=== PATIENT | female | born 1950 | race African-American/Black ===

== ENCOUNTER 2017-04-18 09:17 | Emergency (ER) | payer OTHER ==
[~2017-04-18] VITALS: Ht 165.1 cm; Wt 98.9 kg
[~2017-04-18 09:17] MED LIST: DILTIAZEM ER180 M1 PO; GLUCOPHAGE1000 MG PO; MOBIC15 MG PO; NORCO 5-325 TA1 EACH PO; PRILOSEC 20 MG20 MG PO; SIMVASTATIN40 MG PO; TESSALON PERLE100 MG PO; VENTOLIN HFA 1818 GM INH; XANAX 0.5 MG0.5 M1 PO; ZOLOFT 50 MG TA50 M1 PO; ZPAK PO
[2017-04-18 09:19] VITALS: BP 158/87
[2017-04-18] MEDS ORDERED: GLUCOTROL5 MG PO (09:36)
[2017-04-18] MEDS ORDERED: BENICAR40 MG PO (09:37)
[2017-04-18] MEDS ORDERED: NORFLEX100 MG PO (10:12)
== END 2017-04-18 10:17 | disposition home or self-care (01) ==
LOC: ER 09:17
DX: S16.1XXA Strain of muscle, fascia and tendon at neck level, initial encounter (principal); R07.89 Other chest pain; I10 Essential (primary) hypertension; E11.9 Type 2 diabetes mellitus without complications; F10.99 Alcohol use, unspecified with unspecified alcohol-induced disorder; Z90.710 Acquired absence of both cervix and uterus; Z88.5 Allergy status to narcotic agent; V89.2XXA Person injured in unspecified motor-vehicle accident, traffic, initial encounter; Y93.I9 Activity, other involving external motion; Y92.89 Other specified places as the place of occurrence of the external cause; Y99.8 Other external cause status

== ENCOUNTER 2017-12-23 13:43 | Inpatient (IN) | payer OTHER ==
[~2017-12-23] VITALS: Ht 165.1 cm; Wt 47.6 kg
--- NOTE | ~2017-12-23 | CATHLAB ---
[address] [place] [address] [place] [address] INVASIVE PROCEDURE REPORT Name: DALTON RYAN Room #: 422-P [facility] IN ..#: [id number] Admission: 12/23/17 Attend Phys: Facundo Bartlett, Discharge: Date of : 46 Date of Service: 12/25/17 1455 Report #: [id number] THIS REPORT FOR: //name// APPROVED REPORT Study performed: 12/25/2017 13:02:48 Patient Details Patient Status: In-Patient Room #: The patient is a 67 year-old female Event Personnel Nahid Gaston Operations Support Professionals, Jose Joe RN, Tom Gaytan, Louisa Barr Scrub Procedures Performed Left Heart Cath w/or w/o Coronaries [id number] [facility] Indication Chest pain Risk Factors Hypercholesterolemia, Hypertension, Diabetes Procedure Narrative The Right Groin^ was infiltrated with 1% Lidocaine subcutaneous anesthesia. A PINNACLE 4FR Sheath #[id number] sheath was inserted into the RFA^. Coronary angiography was performed using coronary diagnostic catheters. The right coronary system was accessed and visualized with a JR4 catheter. The left coronary system was accessed and visualized with a JL4 catheter. The left ventricle was accessed and visualized with a PIGTAIL catheter. Left ventricular/Aortic Valve gradient assessed via catheter pullback. Left ventriculogram was performed in 30 degree projection. Hemostasis was obtained with manual pressure following sheath removal without any complications. The patient tolerated the procedure well and there were no complications associated with the procedure. There was no hematoma. Intraoperative Conscious Sedation Sedation start time: 13.22 Case end Time: 13.32 Versed 2 mg Fluoro Time: 1.40 minutes [facility] [place] [place] [address] INVASIVE PROCEDURE REPORT Name: DALTON RYAN Room #: 422-P [facility]#: [id number] Admission: 12/23/17 Attend Phys: Facundo Bartlett, Discharge: Date of : 46 Date of Service: 12/25/17 1455 Report #: [id number] Dose: 552 mGy Contrast Type and Amount: Omnipaque 100 ml Coronary Angiography The patient's coronary anatomy is right dominant. Diagnostic Cath Left Main Patent vessel, with no flow-limiting lesions. LAD Moderate size caliber vessel, with mild disease in the mid segment, 20%. Diagonal 1 Patent vessel, no flow-limiting lesions. Circumflex Patent vessel, supplies several obtuse marginal arteries. OM1 Patent vessel, with no flow-limiting lesions. OM2 Patent vessel with mild disease in the proximal segment, 20%. Right Coronary Dominant vessel with mild to moderate diffuse disease in the proximal and mid segments, 30-40%. R PDA Patent vessel, with no flow-limiting lesions. RPLV Patent vessel, with no flow-limiting lesions. Left Ventriculography The left ventricle is normal in size with normal contractility. The left ventricular ejection fraction is estimated to be 55-60%. Hemodynamics The aortic pressure is 165/89 mmHg with a mean of 80 mmHg. The left ventricular pressure is 150/24 mmHg with a mean of mmHg. The left ventricular end diastolic pressure is 33 mmHg. Conclusion 1. Mild to moderate CAD in the LAD and RCA. 2. Right dominant system. 3. Normal LV systolic function. 4. Recommend risk factor management. <ELECTRONICALLY SIGNED> By: Nahid Gaston MD 12/25/17 1455 1455 1455 Nahid Gaston MD /INF
--- NOTE | ~2017-12-23 | EKG ---
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 : 1950 Requested By: Matthew Larson Order Number: [id number] MD: Matthew Larson Measurements Intervals [place] Rate: 67 P: 65 VA: 150 QRS: 44 QRSD: 90 T: 30 QT: 450 QTc: 475 Interpretive Statements Sinus rhythm Minimal ST elevation, anterior leads Compared to ECG 12/23/2017 14:37:16 ST (T wave) deviation now present T-wave abnormality no longer present Electronically Signed On 12-24-2017 19:53:31 CDT by Matthew Larson [email or web address] <ELECTRONICALLY SIGNED> By: Matthew Larson MD 12/24/171952 2 2 Matthew Larson MD /EPI
--- NOTE | ~2017-12-23 | EKG ---
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 GRISSOM : 1950 Requested By: Piedad Pemberton Order Number: [id number] MD: Matthew Larson Measurements Intervals [place] Rate: 72 P: 71 PA: 152 QRS: 40 QRSD: 87 T: 27 QT: 431 QTc: 472 Interpretive Statements Sinus rhythm Borderline T wave abnormalities Compared to ECG 05/04/2015 12:32:58 T-wave abnormality now present Atrial premature complex(es) no longer present Electronically Signed On 12-24-2017 8:48:16 CDT by Matthew Larson [email or web address] <ELECTRONICALLY SIGNED> By: Matthew Larson MD 12/24/17 0848 1437 1437 Matthew Larson MD /EPI
--- NOTE | ~2017-12-23 | HC ---
[facility] [place] [address] CONSULTATION Name: DALTON RYAN Room #: 422-P [facility] IN ..#: [id number] Admission: 12/23/17 Attend Phys: Facundo Bartlett DO Discharge: 12/26/17 Date of : 46 Report #: [id number] THIS REPORT FOR: //name// CC: Facundo Rai DATE OF SERVICE: 12/24/2017 REASON FOR CONSULTATION: Unstable angina. HISTORY OF PRESENT ILLNESS: The patient is a 67-year-old female with history of diabetes, hypertension, hyperlipidemia, and carotid endarterectomy back in 12/2016 at [facility]. She reports she had a prior heart catheterization 20 years ago, but has not had any recent cardiac evaluations. She reports that she was exercising yesterday doing her water aerobics where she started developing substernal chest pain, radiation to the arms, associated with shortness of breath and some nausea and diaphoresis. She presented to the Emergency Room for further evaluation. She reports that prior to presenting, she did try to take some antacids and drink some baking soda and this did not help her pain. She was admitted for further evaluation. She is currently chest pain free. PAST MEDICAL HISTORY: As above. SOCIAL HISTORY: Does not smoke. FAMILY HISTORY: Noncontributory. ALLERGIES: CODEINE. MEDICATIONS: Include metformin, meloxicam, omeprazole, glipizide, olmesartan, rosuvastatin, bupropion as well as amlodipine. REVIEW OF SYSTEMS: A 12-point review of systems was performed and was negative other than what I mentioned above. PHYSICAL EXAMINATION: VITAL SIGNS: Temperature is 36.7, pulse 66, respiration 18, blood pressure 121/68, sats 93%. GENERAL: She is alert, oriented x 3, no acute distress. HEENT: Sclerae anicteric. Oropharynx is clear. NECK: Supple with no thyromegaly. She does have a prior carotid endarterectomy scar to the right side with no bruits bilaterally. HEART: Regular rate and rhythm with no murmurs, rubs, or gallops. She does not have elevated jugular venous pressure. LUNGS: Clear to auscultation bilaterally. [facility] [address] [place] [address] CONSULTATION Name: DALTON RYAN Room #: 422-P [facility] IN ..#: [id number] Admission: 12/23/17 Attend Phys: Facundo Bartlett DO Discharge: 12/26/17 Date of : 46 Report #: [id number] ABDOMEN: Soft, nontender, nondistended with no hepatosplenomegaly. EXTREMITIES: No clubbing, cyanosis, or edema. NEUROLOGIC: Cranial nerves 2-12 are intact. LABORATORY DATA: CBC is normal. Chemistry: Potassium 4.4, creatinine 0.8, glucose 129. Troponin is normal x 2. ProBNP is pending. LDL 110, HDL 39. Her chest x-ray I personally visualized and there is no acute process. Her 12-lead EKG just performed shows sinus rhythm with no ischemic changes and no evidence of prior infarction. ASSESSMENT: 1. Unstable angina. 2. Diabetes. 3. Hypertension. 4. Hyperlipidemia. 5. Peripheral vascular disease. In summary, the patient is a 67-year-old, presenting with symptoms concerning for unstable angina. There is no ischemia on her EKG and her troponin is normal. I have recommended that we proceed with diagnostic cardiac catheterization tomorrow. I have discussed the details of the procedure including the risks, which include but not limited to bleeding as well as stroke or IN. We discussed if there are any findings, she may need stent placement versus evaluation for CT surgery if she would have 3-vessel disease. We will continue to follow. We will perform an echocardiogram today. <ELECTRONICALLY SIGNED> By: Matthew Larson MD 12/28/17 1141 0914 1906 Matthew Larson MD /nt
--- NOTE | ~2017-12-23 | 2DMMODE ---
[facility] [address] [facility] [place] [address] 2 D/M-MODE ECHOCARDIOGRAM Name: DALTON RYAN Room #: 422-P [facility] IN .R.#: [id number] Admission: 12/23/17 Attend Phys: Facundo Bartlett, Discharge: Date of : 46 Date of Service: 12/24/17 1256 Report #: [id number] THIS REPORT FOR: //name// APPROVED REPORT Study performed: 12/24/2017 10:59:49 EXAM: Comprehensive 2D, Doppler, and color-flow Echocardiogram Patient Location: Bedside Room #: 422 Status: on-call BSA: 2.09 HR: 66 bpm BP: 121/68 mmHg Rhythm: NSR Other Information Study Quality: Adequate Risk Factors: Cardiac Risk Factors: HTN, DM Indications Chest Pain 2D Dimensions LVEF(%): 61.68 (>50%) IVSd: 10.72 (7-11mm) LVOT Diam: 19.00 (18-24mm) LVDd: 42.12 mm PWd: 11.29 (7-11mm) Ascending Ao: 28.73 (22-36mm) LVDs: 28.29 (25-40mm) Aortic Root: 25.32 mm LV Single Plane 4CH: 60.33 % LV Single Plane 2CH: 55.37 % Darden's LVEF: 57.85 % Biplane EF: 57.0 % Volumes Left Atrial Volume (Systole) Single Plane 4CH: 41.75 mL Single Plane 2CH: 29.74 mL LA ESV Index: 19.00 mL/m2 Aortic Valve AoV Peak Luis E.: 1.26 m/s AO Peak Gr.: 6.36 mmHg LVOT Max P.17 mmHg LVOT Max V: 1.02 m/s [facility] [place] [address] 2 D/M-MODE ECHOCARDIOGRAM Name: DALTON RYAN Room #: 422-P [facility] IN M.R.#: [id number] Admission: 12/23/17 Attend Phys: Facundo Bartlett, Discharge: Date of : 46 Date of Service: 12/24/17 1256 Report #: [id number] Vmax: 2.30 cm2 Mitral Valve E/A Ratio: 0.7 MV Decel. Time: 349.19 ms MV E Max Luis E.: 0.71 m/s MV A Luis E.: 0.99 m/s MV PHT: 101.26 ms IVRT: 115.34 ms TDI E/Lateral E': 10.14 E/Medial E': 8.88 Medial E' Luis E.: 0.08 m/s Lateral E' Luis E.: 0.07 m/s Pulmonary Valve PV Peak Luis E.: 0.97 m/s PV Peak Gr.: 3.79 mmHg Pulmonary Vein P Vein S: 0.53 m/s P Vein A: 0.21 m/s P Vein D: 0.45 m/s P Vein A Dur.: 129.2 msec P Vein S/D Ratio: 1.18 Tricuspid Valve RAP Estimate: 10.00 mmHg Left Ventricle The left ventricle is normal size. There is normal LV segmental wall motion. Borderline concentric left ventricular hypertrophy. Left ventricular systolic function is normal. The left ventricular ejection fraction is within the normal range. LVEF is 60%. Grade I - abnormal relaxation pattern. Right Ventricle The right ventricle is normal size. The right ventricular systolic function is normal. Atria The left atrium size is normal. The right atrium size is normal. Aortic Valve The aortic valve is normal in structure. No aortic regurgitation is present. There is no aortic valvular stenosis. Mitral Valve [address] [address] 2 D/M-MODE ECHOCARDIOGRAM Name: DALTON RYAN Room #: 422-P [facility] IN [facility]#: [id number] Admission: 12/23/17 Attend Phys: Facundo Bartlett, Discharge: Date of : 46 Date of Service: 12/24/17 1256 Report #: [id number] There is mitral annular calcification. Trace mitral regurgitation. No evidence of mitral valve stenosis. Tricuspid Valve The tricuspid valve is normal in structure. There is no tricuspid valve regurgitation noted. Pulmonic Valve The pulmonary valve is normal in structure. There is no pulmonic valvular regurgitation. Great Vessels The aortic root is normal in size. IVC is normal in size and collapses with >50% inspiration Pericardium There is no pericardial effusion. <Conclusion> The left ventricle is normal size. Borderline concentric left ventricular hypertrophy. Left ventricular systolic function is normal. The left ventricular ejection fraction is within the normal range. LVEF is 60%. Grade I - abnormal relaxation pattern. The right ventricle is normal size. The right ventricular systolic function is normal. The left atrium size is normal. The right atrium size is normal. The aortic valve is normal in structure. There is mitral annular calcification. The tricuspid valve is normal in structure. There is no tricuspid valve regurgitation noted. The aortic root is normal in size. There is no pericardial effusion. <ELECTRONICALLY SIGNED> By: Matthew Larson MD 12/24/17 1256 1256 1256 Matthew Larson MD /INF
[~2017-12-23 13:43] MED LIST changes: +BENICAR40 MG PO; +GLUCOTROL5 MG PO; +NORFLEX100 MG PO
[2017-12-23 14:07] VITALS: BP 159/73
[2017-12-23 14:59] LABS: ABSOLUTE NEUTROPHILS 3.2 thou/uL (1.4-8.2); EOSINOPHILS 1.9 % (0.0-3.0); HEMATOCRIT 37.6 % (37.0-47.0); HEMOGLOBIN 12.6 gm/dL (12.0-15.0); MCH 31.3 pg (26.0-34.0); MCHC 33.6 g/dL (28.0-37.0); MCV 93.1 fL (80.0-100.0); MONOCYTES 9.1 % (1.0-8.0); PLATELET COUNT 275 thou/uL (150-400); RBC 4.04 mil/uL (4.20-5.00); RDW 15.5 % (10.5-14.5); WBC 6.7 thou/uL (4.0-11.0)
[2017-12-23 15:06] LABS: ANION GAP 7 mmol/L (7-16); BUN 14 mg/dL (7-18); CALCIUM 9.3 mg/dL (8.5-10.1); CHLORIDE 106 mmol/L (98-107); CO2 29 mmol/L (21-32); CREATININE 0.9 mg/dL (0.6-1.0); GLUCOSE 112 mg/dL (74-106); POTASSIUM 3.7 mmol/L (3.5-5.1); SODIUM 142 mmol/L (136-145)
[2017-12-23 15:15] LABS: ALBUMIN 3.9 g/dL (3.4-5.0); LIPASE 129 U/L (73-393); SGOT 29 U/L (15-37); SGPT 38 U/L (30-65); TOTAL BILIRUBIN 0.2 mg/dL (<0.1-1.0); TOTAL PROTEIN 7.5 g/dL (6.4-8.2); TROPONIN-I < 0.04 ng/mL (<0.06)
[2017-12-23 17:07] VITALS: BP 159/73
[2017-12-23] MEDS ORDERED: CRESTOR20 MG PO (17:16)
[2017-12-23] MEDS ORDERED: NORVASC10 MG PO (17:18)
[2017-12-23] MEDS ORDERED: WELLBUTRIN SR150 MG PO (17:18)
[2017-12-23 18:30] VITALS: BP 140/73
[2017-12-23 19:12] VITALS: BP 164/82
[2017-12-24] VITALS: BP 141/78
[2017-12-24 04:03] VITALS: BP 137/62
[2017-12-24 06:41] LABS: CALCIUM 9.3 mg/dL (8.5-10.1); CREATININE 0.8 mg/dL (0.6-1.0); POTASSIUM 4.4 mmol/L (3.5-5.1)
[2017-12-24 06:46] LABS: CHOLESTEROL 162 mg/dL (<200); HDL CHOLESTEROL 39 mg/dL (>40); LDL CHOLESTEROL 110 mg/dL (<100); TC:HDL 4.2 Ratio (Not establshd); TRIGLYCERIDE 65 mg/dL (<150); VLDL 13 mg/dL (<40)
[2017-12-24 07:53] VITALS: BP 121/68
[2017-12-24 14:40] VITALS: BP 116/46
[2017-12-24 20:00] VITALS: BP 139/72
[2017-12-25] VITALS (7 sets, daily range): BP systolic 129–161; BP diastolic 61–82
[2017-12-25 00:08] LABS: GLYCOHEMOGLOBIN (HGB A1C) 6.8 % (4.8-5.6)
[2017-12-25 01:19] LABS: URINE BILIRUBIN NEGATIVE (Negative); URINE BLOOD NEGATIVE (Negative); URINE CLARITY CLEAR; URINE COLOR YELLOW; URINE GLUCOSE-RANDOM* NEGATIVE (Negative); URINE KETONES TRACE (Negative); URINE LEUKOCYTES NEGATIVE (Negative); URINE NITRITE NEGATIVE (Negative); URINE PROTEIN (DIPSTICK) NEGATIVE (Negative); URINE SPECIFIC GRAVITY >= 1.030 (1.005-1.035); URINE UROBILINOGEN 0.2 E.U./dl (0.2-1.0)
[2017-12-26 05:15] VITALS: BP 138/75
[2017-12-26 06:19] LABS: HEMOGLOBIN 13.1 gm/dL (12.0-15.0); MCHC 32.8 g/dL (28.0-37.0); MCV 94.5 fL (80.0-100.0); RBC 4.23 mil/uL (4.20-5.00); RDW 15.8 % (10.5-14.5); WBC 5.8 thou/uL (4.0-11.0)
[2017-12-26 06:46] LABS: CALCIUM 9.6 mg/dL (8.5-10.1); CREATININE 0.9 mg/dL (0.6-1.0); POTASSIUM 4.1 mmol/L (3.5-5.1)
[2017-12-26 06:54] VITALS: BP 130/63
[2017-12-26] MEDS ORDERED: COZAAR100 MG PO (08:44)
[2017-12-26] MEDS ORDERED: METOPROLOL SUCC25 M1 PO (08:44)
[2017-12-26] MEDS ORDERED: ASPIR 8181 MG PO (08:45)
[2017-12-26 09:00] VITALS: BP 130/63
[2017-12-26 10:41] VITALS: BP 130/63
== END 2017-12-26 11:10 | disposition home or self-care (01) | DRG 287 ==
LOC: ER 13:43 → 4E 16:22 → EROBS 16:22 → 4E 18:32
PROVIDERS: Family Medicine; Internal Medicine Cardiovascular Disease; Nurse Practitioner Family
PROC: 4A023N7 Measurement of Cardiac Sampling and Pressure, Left Heart, Percutaneous Approach (ICD-10-PCS; principal; 2017-12-25)
PROC: B2111ZZ Fluoroscopy of Multiple Coronary Arteries using Low Osmolar Contrast (ICD-10-PCS; 2017-12-25)
PROC: B2151ZZ Fluoroscopy of Left Heart using Low Osmolar Contrast (ICD-10-PCS; 2017-12-25)
DX: I25.110 Atherosclerotic heart disease of native coronary artery with unstable angina pectoris (principal); Z68.1 Body mass index [BMI] 19.9 or less, adult; I10 Essential (primary) hypertension; E78.00 Pure hypercholesterolemia, unspecified; E66.9 Obesity, unspecified; H60.90 Unspecified otitis externa, unspecified ear; E78.5 Hyperlipidemia, unspecified; E11.51 Type 2 diabetes mellitus with diabetic peripheral angiopathy without gangrene; Z88.8 Allergy status to other drugs, medicaments and biological substances; Z79.899 Other long term (current) drug therapy; Z90.710 Acquired absence of both cervix and uterus
CPT/HCPCS: 10183

== ENCOUNTER 2018-01-28 19:48 | Emergency (ER) | payer OTHER ==
[~2018-01-28] VITALS: Ht 165.1 cm; Wt 102.5 kg
[~2018-01-28 19:48] MED LIST changes: +ASPIR 8181 MG PO; +COZAAR100 MG PO; +CRESTOR20 MG PO; +METOPROLOL SUCC25 M1 PO; +NORVASC10 MG PO; +WELLBUTRIN SR150 MG PO
== END 2018-01-28 20:35 | disposition home or self-care (01) ==
LOC: ER 19:48
DX: S16.1XXA Strain of muscle, fascia and tendon at neck level, initial encounter (principal); I10 Essential (primary) hypertension; E11.9 Type 2 diabetes mellitus without complications; Z88.5 Allergy status to narcotic agent; X58.XXXA Exposure to other specified factors, initial encounter; Y93.89 Activity, other specified; Y92.89 Other specified places as the place of occurrence of the external cause; Y99.8 Other external cause status

== ENCOUNTER → 2019-06-04 | Outpatient (CLI) | payer OTHER ==
[~2019-06-04] VITALS: Ht 165.1 cm; Wt 104.3 kg
[~2019-06-04] MED LIST changes: +AMARYL2 MG PO; +BENICAR HCT 401 EACH PO; +CHLOR-TABLET4 MG PO; +DICLOFENAC SODI75 MG PO; +JANUVIA100 MG PO; +METFORMIN HCL500 MG PO; +TOPROL XL25 MG PO; +XANAX 0.5 MG0.5 MG PO
[2019-06-04 13:09] VITALS: BP 145/78
--- NOTE | 2019-06-04 13:40 | NUR ---
Pain Clinic Assessment: 1. History of Osteoarthritis: BACK NECK BIG TOES History of Rheumatoid Arthritis: Not Applicable 2. Height: 5 ft. 5 in. 165.1 cm. Weight: 230.0 lb. oz. 104.328 kg. Patient's BMI: 38.3 3. Vital Signs: BP: 145/78 Pulse: 70 Resp: 16 Temp: 02 Sat: 100 ECG Mon: 4. Pain Intensity: 8 5. Fall Risk: Dizziness: Y Needs help standing or walking: N Fallen in the last 3 months: N Fall risk comments: 6. Patient on Blood Thinner: None 7. History of Hypertension: Y 8. Opioid Therapy greater than 6 weeks: N Opiate Contract Signed: 9. Risk Assessment Tool Provided: LOW RISK 09/13 10. Functional Assessment Tool: 11. Recreational Drug Use: Never Drug Type: Tobacco Use: Never Smoker Tobacco Type: Amount or Packs/day: How Many Years: Alcohol Use: No Frequency: Quant:
--- NOTE | 2019-06-18 07:47 | HPC ---
[facility] [address] [address] PAIN MANAGEMENT CONSULTATION Name: DALTON RYAN Room #: REG [facility]#: [id number] Admission: 06/04/19 Attend Phys: Facundo Agosto DO Discharge: Date of : 46 Report #: [id number] THIS REPORT FOR: //name// CC: Facundo Agosto Physician staff Angel Rai MD DATE OF SERVICE: 06/04/2019 REFERRING PHYSICIAN: Angel Rai MD CHIEF COMPLAINT: Low back pain, bilateral lower extremity pain with paresthesias. HISTORY OF PRESENT ILLNESS: As you know, the patient is a 68-year-old female referred to our service by her primary care physician, Dr. Angel Rai, for evaluation for lumbar radiculopathy. The patient has trialed conservative treatment via their services without improvement in pain. The patient states symptoms have been present since 2015. She was referred to our service due to lack of improvement with conservative treatment options. The patient apparently has had prior epidural injections in the, past in 2016, which provided good benefit. She has been referred to our clinic to discuss repeating these injections today. The patient reports today pain is continuous with periodic, intermittent and transient exacerbation of symptoms. She indicates pain is aching, pulling, throbbing, pounding with intermittent numbness and tingling. She places current pain score at 8/10, daily average of 5-8/10, worst pain has been 8/10. The patient states that standing, bending, sleeping, sweeping the ground or going upstairs exacerbates symptoms; lying down or sitting down tends to improve pain. The patient has been referred to our service by her primary care physician to trial epidural injections under fluoroscopic guidance to determine if her symptoms would be amenable. PAST MEDICAL HISTORY: 1. Diabetes mellitus type 2. 2. Hyperlipidemia. 3. Hypertension. 4. Gastroesophageal reflux disease. 5. Chronic fatigue syndrome. 6. Obesity. 7. Anxiety. 8. Depression. 9. History of cervical cancer. 10. Osteoarthritis. [address] [address] PAIN MANAGEMENT CONSULTATION Name: SHELBYDALTON Richi Room #: REG [facility] Joshua#: [id number] Admission: 06/04/19 Attend Phys: Facundo Agosto DO Discharge: Date of : 46 Report #: [id number] PAST SURGICAL HISTORY: 1. Total abdominal hysterectomy secondary to cervical cancer. 2. Oral dental plastic surgery. 3. Carotid endarterectomy. SOCIAL HISTORY: The patient denies tobacco, IV or illicit drug use. She admits to occasional alcohol beverage. She is retired, retired about 2 years ago, not receiving workmen's compensation or is trying to obtain disability benefits. She is unaccompanied at today's visit. REVIEW OF SYSTEMS: Positive for night sweats, fatigue and weakness, wearing corrective eyewear, cataracts, shortness of breath with walking or lying flat, changes in bowel movements with intermittent constipation. She is positive for numbness and tingling sensations, diabetes mellitus type 2. All other review of systems negative per 12-point review of systems other than those listed in the history of present illness. Pain impact score 40/70 indicating moderate interference of daily activities secondary to pain. ALLERGIES: CODEINE. CURRENT MEDICATIONS: Chlorpheniramine 4 mg once a day, diclofenac 75 mg twice a day, alprazolam 0.5 mg once a day, glimepiride 2 mg once a day, Januvia 100 mg once a day, metformin 500 mg once a day, metoprolol 25 mg once a day, olmesartan/hydrochlorothiazide 20/12.5 mg once a day, aspirin 81 mg per day, amlodipine 10 mg per day, bupropion 150 mg twice a day, rosuvastatin 20 mg once a day and omeprazole 20 mg per day. IMAGING: MRI lumbar spine shows multilevel degenerative changes, which does show progression from prior study. Area of protrusion at the L5-S1 level with annular tearing without extrusion and without central canal or neuroforaminal stenosis. There is a lipoma on the right paraspinous musculature. PHYSICAL EXAMINATION: VITAL SIGNS: Blood pressure 145/78, pulse 70, respiratory rate 16 and unlabored. The patient is 100% on room air. Height 5 feet 5 inches tall, weight 230 pounds, BMI calculated 38.3. GENERAL: Well-developed, well-nourished, well-hydrated exogenously obese 68-year-old female, appearing stated age. She is placing current pain score at 8/10. HEENT: Normocephalic, atraumatic. Pupils equal, round, reactive to light. Extraocular muscles are intact. Sclerae nonicteric without injection. NEUROLOGIC: Cranial nerves 2 through 12 grossly intact. Speech fluent. The patient deemed a fair historian. LUNGS: Clear, no wheeze, rhonchi or rales. CARDIOVASCULAR: Regular. No appreciable gallop or rub. [address] [address] PAIN MANAGEMENT CONSULTATION Name: DALTON RYAN Room #: REG [facility]#: [id number] Admission: 06/04/19 Attend Phys: Facundo Agosto DO Discharge: Date of : 46 Report #: [id number] ABDOMEN: Soft, obese, normoactive bowel sounds. EXTREMITIES: Show no clubbing, no cyanosis, and no edema. MUSCULOSKELETAL: Lower extremity strength equal and symmetrical, 5/5. She is intact to light touch from L1 through S2 dermatomes. Seated straight leg raising negative. Supine straight leg raising negative. ANICETO'S test is negative. Modified Gaenslen's positive for axial low back pain. Ankle clonus negative. Babinski is negative. Muscle bulk and tone is symmetrical in comparing left lower extremity to the right. ASSESSMENT: 1. Chronic lumbar radiculopathy. 2. Lumbosacral spondylosis with radicular symptoms. 3. Lumbar degeneration. 4. Chronic intractable pain. PLAN: 1. The patient has been referred to our service to discuss treatment options for suspected lumbar radiculopathy. The patient's symptoms currently are axial in nature with some intermittent radiation down the legs. We recommend the following treatment options for possible analgesic benefit. We discussed the following with the patient today. We discussed physical therapy, stretching exercise, core strengthening and a concerted effort at weight loss, which is the gold standard treatment for the symptoms the patient is experiencing. We discussed medication management with suggestions of neuropathic pain medications and consistent nonsteroidal anti-inflammatories. We discussed lumbar epidural injection for which the patient was referred to our clinic. We also discussed surgical options. After reviewing the risks and benefits of all proposed treatment options, the patient chose to undergo lumbar epidural injection under fluoroscopic guidance. The patient has been advised risks and benefits of a lumbar epidural injection. These risks include but not necessarily limited to bleeding, bruising, infection, worsening of pain, no relief of pain, also risk of temporary or permanent muscle weakness, temporary or permanent nerve damage, possible paralysis, post-dural puncture headache and . The patient states she understood and wished to proceed. 2. No medication changes made at today's visit. The patient will continue current medical therapy as previously prescribed. 3. We will see the patient back in followup visit on an as needed basis for possible next in the series of lumbar epidural injections. PROCEDURE NOTE DESCRIPTION OF PROCEDURE: L5-S1 interlaminar epidural steroid injection under fluoroscopic guidance. [address] [address] PAIN MANAGEMENT CONSULTATION Name: DALTON RYAN Room #: REG [facility]#: [id number] Admission: 06/04/19 Attend Phys: Facundo Agosto DO Discharge: Date of : 46 Report #: [id number] This is the first procedure of the first series that the patient is undergoing. After obtaining written consent, the patient was taken back to the fluoroscopy suite, placed in a prone position with pillow under the abdomen to decrease lumbar lordosis. The skin overlying the lumbosacral area was then prepped and draped in aseptic fashion. The L5-S1 vertebral interspace was then identified by AP fluoroscopy. The skin and subcutaneous tissue overlying the target site of injection was anesthetized with 3 mL 1% lidocaine. A 20-gauge 4-1/9-rpsb-Cjpni needle was then advanced under fluoroscopic guidance towards the epidural space using a midline approach. The epidural space was identified using loss of resistance to air technique. After negative aspiration for heme or cerebrospinal fluid, a total of 1 mL of Omnipaque was injected. A lumbar epidurogram was confirmed using both AP and lateral fluoroscopy. After negative aspiration for heme or cerebrospinal fluid, 5 mL of solution containing 2 mL, 40 mg per mL, 80 mg total triamcinolone along with 3 mL lidocaine 1% was injected in increments. Contrast spread was noted post epidural space. The needle was then retracted approximately half way and needle tract flushed with 1 mL of 1% lidocaine. Needle was then removed. There were no apparent sensory or motor deficits in the lower extremity following the procedure. A sterile bandage was placed over the injection site. The heart rate, pulse, oximetry and blood pressure were continuously monitored after the procedure. There were no apparent complications. The patient tolerated the procedure well and was carefully escorted to the recovery room in stable condition. There were no apparent complications. After meeting discharge criteria, the patient was then discharged home. <ELECTRONICALLY SIGNED> By: Facundo Agosto DO 06/18/19 0747 1652 1150 Facundo Agosto DO /nt
== END | disposition home or self-care (01) ==
LOC: PAIN 06:58
DX: M54.16 Radiculopathy, lumbar region (principal); F41.9 Anxiety disorder, unspecified; Z88.8 Allergy status to other drugs, medicaments and biological substances; Z79.899 Other long term (current) drug therapy

== ENCOUNTER → 2019-08-21 | Outpatient (CLI) | payer OTHER ==
[~2019-08-21] VITALS: Ht 165.1 cm; Wt 105.4 kg
[~2019-08-21] MED LIST changes: +ASPIR 8181 M1 PO
[2019-08-21 13:12] VITALS: BP 158/81
--- NOTE | 2019-08-21 13:22 | NUR ---
Pain Clinic Assessment: 1. History of Osteoarthritis: BACK NECK BIG TOES History of Rheumatoid Arthritis: Not Applicable 2. Height: 5 ft. 5 in. 165.1 cm. Weight: 232.4 lb. oz. 105.416 kg. Patient's BMI: 38.7 3. Vital Signs: BP: 158/81 Pulse: 61 Resp: 18 Temp: 02 Sat: 97 ECG Mon: 4. Pain Intensity: 0 5. Fall Risk: Dizziness: N Needs help standing or walking: N Fallen in the last 3 months: N Fall risk comments: 6. Patient on Blood Thinner: None 7. History of Hypertension: Y 8. Opioid Therapy greater than 6 weeks: N Opiate Contract Signed: 9. Risk Assessment Tool Provided: LOW RISK 09/13 10. Functional Assessment Tool: 11. Recreational Drug Use: Never Drug Type: Tobacco Use: Never Smoker Tobacco Type: Amount or Packs/day: How Many Years: Alcohol Use: No Frequency: Quant:
--- NOTE | 2019-08-27 12:14 | HPC ---
[facility] [address] [place] [address] PAIN MANAGEMENT CONSULTATION Name: DALTON RYAN Room #: REG [facility]#: [id number] Admission: 08/21/19 Attend Phys: Facundo Agosto DO Discharge: Date of : 46 Report #: [id number] THIS REPORT FOR: //name// CC: Facundo Rai MD DATE OF SERVICE: 08/21/2019 CHIEF COMPLAINT: Low back pain, bilateral lower extremity pain with paresthesias. HISTORY OF PRESENT ILLNESS: As you know, the patient is a pleasant 69-year-old female returning in followup visit to undergo next in the series of lumbar epidural injections to address recurrent lumbar radiculopathy. The patient reports pain today up to 3-4/10. She reports a 100% improvement in overall pain with previous lumbar epidural injection lasting until just recently where she had a slow and progressive return of symptoms to a level of 3/10 with activities. She returns requesting the epidural injection, denying any new injury or trauma. ALLERGIES: CODEINE. CURRENT MEDICATIONS: See chart. SOCIAL HISTORY: The patient denies tobacco, IV or illicit drug use. Admits to occasional alcohol beverage. She is retired, retired about 3 years ago, unaccompanied today. IMAGING: No new imaging available. PQRS: The patient has known arthritic changes of lumbar spine, cervical spine and bilateral feet. No rheumatoid arthritis. Pain intensity is rated anywhere from 0-3/10. She is not a fall risk, has not had a fall in last 3 months. She is not on blood thinners, but is treated for hypertension. She is not on chronic opioids. She has a low opioid addiction potential. Pain impact score 40/70 indicating moderate interference of daily activities secondary to pain. PHYSICAL EXAMINATION: VITAL SIGNS: Blood pressure 158/81, pulse 61, respiratory rate 18 and unlabored. The patient is 97% on room air. Height 5 feet 5 inches tall, weight 232.4 pounds, BMI calculated 38.7. GENERAL: Well-developed, well-nourished, well-hydrated exogenously obese 69-year-old female appearing stated age, pain is rated today at anywhere from 0-3/10. [address] [address] PAIN MANAGEMENT CONSULTATION Name: DALTON RYAN Room #: REG [facility]#: [id number] Admission: 08/21/19 Attend Phys: Facundo Agosto DO Discharge: Date of : 46 Report #: [id number] HEENT: Normocephalic, atraumatic. Pupils equal, round, reactive to light. EXTREMITIES: Show no clubbing, no cyanosis, and no edema. MUSCULOSKELETAL: Lower extremity strength appears symmetrical, but deconditioned. She is able to provide strength 5/5, intact to light touch from L1 through S2 dermatomes. Seated straight leg raising is negative. Supine straight leg raising remains negative. Modified Gaenslen's positive for axial low back pain. ASSESSMENT: 1. Symptomatic lumbar radiculopathy. 2. Lumbosacral spondylosis with radiculopathy. 3. Lumbar degeneration. 4. Chronic intractable pain. PLAN: 1. The patient returns today in followup visit having noted 100% improvement in overall pain with the epidural injection provided at our last visit of 06/04/2019. She returns today in followup visit to undergo next in the series of epidural injections in hopes of building on success of previous intervention. The patient has been advised risks and benefits of the procedure, states understood and wished to proceed. 2. No medication changes made at today's visit. The patient will continue current medical therapy as prior prescribed. 3. We will see the patient back in followup visit on an as needed basis for possible next in the series of lumbar epidural injections. We are pleased to see the patient, has done well with the first epidural injection. We are hopeful she will see similar improvement with today's procedure. PROCEDURE NOTE PROCEDURE: L5-S1 intralaminar epidural steroid injection under fluoroscopic guidance. This is the second procedure of the first series that the patient is undergoing. After obtaining written consent, the patient was taken back to the fluoroscopy suite, placed in a prone position with pillow under the abdomen to decrease lumbar lordosis. The skin overlying the lumbosacral area was then prepped and draped in aseptic fashion. The L5-S1 vertebral interspace was then identified by AP fluoroscopy. The skin and subcutaneous tissue overlying the target site of injection was anesthetized with 3 mL 1% lidocaine. A 20 gauge 4-1/2 inch Tuohy needle was then advanced under fluoroscopic guidance towards the epidural space using a right paramedian approach. The epidural space was identified using loss of resistance to air technique. After negative aspiration for heme or cerebrospinal fluid, a total of 1 mL of Omnipaque was [facility] [address] [place] [address] PAIN MANAGEMENT CONSULTATION Name: DALTON RYAN [id number] Admission: 08/21/19 Attend Phys: Facundo Agosto DO Discharge: Date of : 46 Report #: [id number] injected. A lumbar epidurogram was confirmed using both AP and lateral fluoroscopy. After negative aspiration for heme or cerebrospinal fluid, 5 mL of a solution containing 2 mL 40 mg/mL, 80 mg total triamcinolone along with 3 mL lidocaine 1% was injected in increments. Contrast spread was noted posterior epidural space. The needle was then retracted approximately half way and needle tract flushed with 1 mL of 1% lidocaine. Needle was then removed. There were no apparent sensory or motor deficits in the lower extremity following the procedure. A sterile bandage was placed over the injection site. The heart rate, pulse, oximetry and blood pressure were continuously monitored after the procedure. There were no apparent complications. The patient tolerated the procedure well and was carefully escorted to the recovery room in stable condition. There were no apparent complications. After meeting discharge criteria, the patient was then discharged home. <ELECTRONICALLY SIGNED> By: Facundo Agosto DO 08/27/19 1214 [id number] Facundo Agosto DO /nt
== END | disposition home or self-care (01) ==
LOC: PAIN 07-09 13:42
DX: M51.16 Intervertebral disc disorders with radiculopathy, lumbar region (principal); M47.26 Other spondylosis with radiculopathy, lumbar region; G89.29 Other chronic pain; Z88.8 Allergy status to other drugs, medicaments and biological substances; Z79.899 Other long term (current) drug therapy; Z79.84 Long term (current) use of oral hypoglycemic drugs

== ENCOUNTER → 2019-11-26 | Outpatient (CLI) | payer OTHER ==
[~2019-11-26] VITALS: Ht 165.1 cm; Wt 106.6 kg
[2019-11-26 10:17] VITALS: BP 145/83
--- NOTE | 2019-11-26 10:25 | NUR ---
Pain Clinic Assessment: 1. History of Osteoarthritis: BACK NECK BIG TOES History of Rheumatoid Arthritis: Not Applicable 2. Height: 5 ft. 5 in. 165.1 cm. Weight: 235.0 lb. oz. 106.596 kg. Patient's BMI: 39.1 3. Vital Signs: BP: 145/83 Pulse: 64 Resp: 16 Temp: 02 Sat: 96 ECG Mon: 4. Pain Intensity: 7 5. Fall Risk: Dizziness: N Needs help standing or walking: N Fallen in the last 3 months: N Fall risk comments: 6. Patient on Blood Thinner: None 7. History of Hypertension: Y 8. Opioid Therapy greater than 6 weeks: N Opiate Contract Signed: 9. Risk Assessment Tool Provided: LOW RISK 09/13 10. Functional Assessment Tool: 11. Recreational Drug Use: Never Drug Type: Tobacco Use: Never Smoker Tobacco Type: Amount or Packs/day: How Many Years: Alcohol Use: No Frequency: Quant:
--- NOTE | 2019-11-26 15:47 | HPC ---
[facility] [place] [address] PAIN MANAGEMENT CONSULTATION Name: DALTON RYAN Room #: REG [facility]#: [id number] Admission: 11/26/19 Attend Phys: Facundo Agosto DO Discharge: Date of : 46 Report #: [id number] THIS REPORT FOR: cc: PATTI ANGELA MD, Steven A. MD Johnson, James E. DO ~ DATE OF SERVICE: 11/26/2019 CHIEF COMPLAINT: Low back pain, bilateral lower extremity pain with paresthesias. HISTORY OF PRESENT ILLNESS: As you know, the patient is a very pleasant 69-year-old female returning in followup visit to undergo lumbar epidural injection under fluoroscopic guidance. The patient is reporting pain today at a level of around 7/10. The patient indicates no new injury or trauma that may have led to symptom reoccurrence. The previous epidural injection provided for this patient gave 80% improvement in overall pain. Unfortunately, she has had a slow and progressive return of symptoms. She returns today to undergo next in the series of lumbar epidural injections to build on success of previous intervention. This is the third in the 6-month series. ALLERGIES: CODEINE. CURRENT MEDICATIONS: See chart. SOCIAL HISTORY: The patient denies tobacco, alcohol, IV or illicit drug use. She admits to being retired, retired about 3 years ago, unaccompanied at today's visit. IMAGING: No new imaging available. PQRS: The patient has known arthritic changes of the lumbar spine, cervical spine, bilateral feet and hips as well as knees. She is not treated for rheumatologic issues. She is placing pain intensity at 7/10. She is not a fall risk, has not had a fall in last 3 months. She is not on blood thinners, but is treated for hypertension. She is not on chronic opioids and does have a low opioid addiction potential. Pain impact score 48/70 indicating moderate interference of daily activities secondary to pain. PHYSICAL EXAMINATION: VITAL SIGNS: Blood pressure 145/83, pulse 64, respiratory rate 16 and unlabored. The patient is 96% on room air. Height 5 feet 5 inches tall, weight 235 pounds, BMI calculated 39.1. GENERAL: Well-developed, well-nourished, well-hydrated, class 2, morbidly obese [address] [address] PAIN MANAGEMENT CONSULTATION Name: DALTON RYAN Room #: REG [facility]#: [id number] Admission: 11/26/19 Attend Phys: Facundo Agosto DO Discharge: Date of : 46 Report #: [id number] 69-year-old female appearing stated age, placing current pain score 7/10. HEENT: Normocephalic, atraumatic. Pupils equal, round, reactive to light. EXTREMITIES: Show no clubbing, no cyanosis, and no edema. MUSCULOSKELETAL: Lower extremity strength equal and symmetrical, again today 5/5. She is intact to light touch from L1 through S2 dermatomes. Modified Gaenslen's positive for some axial low back pain, no radiation of symptoms. Seated straight leg raising negative. Supine straight leg raising remains negative. Manjit's test is negative. Lumbar provocation testing is met with increasing pain. ASSESSMENT: 1. Symptomatic lumbar radiculopathy. 2. Lumbosacral spondylosis with radiculopathy. 3. Lumbar degeneration. 4. Chronic intractable pain. PLAN: 1. The patient returns today in followup visit reporting good efficacy with previous epidural injection. She reports almost 80% improvement in overall pain with previous injection. Unfortunately, her symptoms have begun to return. She is now placing pain score 7/10. The patient denies new injury, new trauma or any changes in medical history, which would preclude us from providing the injection today. The patient has been advised of the risks and benefits of a lumbar epidural injection, states she understood and wished to proceed. 2. No medication changes made at today's visit. The patient will continue current medical therapy as previously prescribed. 3. We will see the patient back in followup visit on an as needed basis for possible next in the series of epidural injections. We are hopeful the patient will see good and prolonged benefit with today's procedure. PROCEDURE NOTE DESCRIPTION OF PROCEDURE: L5-S1 interlaminar epidural steroid injection under fluoroscopic guidance. This is the third procedure of the first series that the patient is undergoing. After obtaining written consent, the patient was taken back to the fluoroscopy suite, placed in a prone position with pillow under the abdomen to decrease lumbar lordosis. The skin overlying the lumbosacral area was then prepped and draped in aseptic fashion. The L5-S1 vertebral interspace was then identified by AP fluoroscopy. The skin and subcutaneous tissue overlying the target site of injection was anesthetized with 3 mL 1% lidocaine. A 20 gauge 4-1/2 inch Tuohy needle was then advanced under fluoroscopic guidance towards the epidural space using a right paramedian approach. The epidural [address] [address] PAIN MANAGEMENT CONSULTATION Name: DALTON RYAN Room #: REG [facility]#: [id number] Admission: 11/26/19 Attend Phys: Facundo Agosto DO Discharge: Date of : 46 Report #: [id number] space was identified using loss of resistance to air technique. After negative aspiration for heme or cerebrospinal fluid, a total of 1 mL of Omnipaque was injected. A lumbar epidurogram was confirmed using both AP and lateral fluoroscopy. After negative aspiration for heme or cerebrospinal fluid, 5 mL of a solution containing 2 mL 40 mg per mL, 80 mg total triamcinolone along with 3 mL of lidocaine 1% was injected in increments. Contrast spread was noted posterior epidural space. The needle was then retracted approximately half way and needle tract flushed with 1 mL of 1% lidocaine. Needle was then removed. There were no apparent sensory or motor deficits in the lower extremity following the procedure. A sterile bandage was placed over the injection site. The heart rate, pulse, oximetry and blood pressure were continuously monitored after the procedure. There were no apparent complications. The patient tolerated the procedure well and was carefully escorted to the recovery room in stable condition. There were no apparent complications. After meeting discharge criteria, the patient was then discharged home. <ELECTRONICALLY SIGNED> By: Facundo Agosto, 11/26/19 1547 [id number] [id number] Facundo Agosto DO /nt
== END | disposition home or self-care (01) ==
LOC: PAIN 06:46
DX: M51.16 Intervertebral disc disorders with radiculopathy, lumbar region (principal); M47.27 Other spondylosis with radiculopathy, lumbosacral region; G89.29 Other chronic pain; Z98.890 Other specified postprocedural states; Z79.899 Other long term (current) drug therapy; Z88.6 Allergy status to analgesic agent

== ENCOUNTER → 2020-02-19 | Outpatient (CLI) | payer OTHER ==
[~2020-02-19] VITALS: Ht 165.1 cm; Wt 107.3 kg
[2020-02-19 14:45] VITALS: BP 139/85
--- NOTE | 2020-02-19 14:58 | NUR ---
Pain Clinic Assessment: 1. History of Osteoarthritis: BACK NECK BIG TOES History of Rheumatoid Arthritis: Not Applicable 2. Height: 5 ft. 5 in. 165.1 cm. Weight: 236.6 lb. oz. 107.321 kg. Patient's BMI: 39.4 3. Vital Signs: BP: 139/85 Pulse: 67 Resp: 18 Temp: 02 Sat: 97 ECG Mon: 4. Pain Intensity: 10 5. Fall Risk: Dizziness: N Needs help standing or walking: N Fallen in the last 3 months: Y Fall risk comments: 6. Patient on Blood Thinner: None 7. History of Hypertension: Y 8. Opioid Therapy greater than 6 weeks: N Opiate Contract Signed: 9. Risk Assessment Tool Provided: LOW RISK 09/13 10. Functional Assessment Tool: 11. Recreational Drug Use: Never Drug Type: Tobacco Use: Never Smoker Tobacco Type: Amount or Packs/day: How Many Years: Alcohol Use: No Frequency: Quant:
--- NOTE | 2020-03-03 09:14 | P ---
[facility] [place] [address] PROCEDURE REPORT Name: DALTON RYAN Room #: REG [facility]#: [id number] Admission: 02/19/20 Attend Phys: Facundo Agosto DO Discharge: Date of : 46 Report #: [id number] THIS REPORT FOR: cc: PATTI ANGELA MD, Steven A. MD Johnson, James E. DO ~ DATE OF SERVICE: 02/19/2020 DESCRIPTION OF PROCEDURE: L5-S1 interlaminar epidural steroid injection under fluoroscopic guidance. This is the third procedure of the first series that the patient is undergoing. After obtaining written consent, the patient was taken back to the fluoroscopy suite, placed in a prone position with pillow under the abdomen to decrease lumbar lordosis. The skin overlying the lumbosacral area was then prepped and draped in aseptic fashion. The L5-S1 vertebral interspace was then identified by AP fluoroscopy. The skin and subcutaneous tissue overlying the target site of injection was anesthetized with 3 mL 1% lidocaine. A 20-gauge 4-/12 inch Tuohy needle was then advanced under fluoroscopic guidance towards the epidural space using a parasagittal approach. The epidural space was identified using loss of resistance to air technique. After negative aspiration for heme or cerebrospinal fluid, a total of 1 mL of Omnipaque was injected. A lumbar epidurogram was confirmed using both AP and lateral fluoroscopy. After negative aspiration for heme or cerebrospinal fluid, 5 mL of a solution containing 2 mL of 40 mg per mL, 80 mg total of triamcinolone along with 3 mL of lidocaine 1% was injected in increments. Contrast spread was noted in posterior epidural space. The needle was then retracted approximately half way and needle tract flushed with 1 mL of 1% lidocaine. Needle was then removed. There were no apparent sensory or motor deficits in the lower extremity following the procedure. A sterile bandage was placed over the injection site. The heart rate, pulse, oximetry and blood pressure were continuously monitored after the procedure. There were no apparent complications. The patient tolerated the procedure well and was carefully escorted to the recovery room in stable condition. There were no apparent complications. After meeting discharge criteria, the patient was then discharged home. <ELECTRONICALLY SIGNED> By: Facundo Agosto DO 03/03/20 0914 1112 1302 Facundo Agosto DO /nt
--- NOTE | 2020-03-03 09:14 | HPC ---
[facility] [address] [place] [address] PAIN MANAGEMENT CONSULTATION Name: DALTON RYAN Room #: REG [facility]#: [id number] Admission: 02/19/20 Attend Phys: Facundo Agosto DO Discharge: Date of : 46 Report #: [id number] THIS REPORT FOR: cc: PATTI ANGELA MD, Steven A. MD Johnson, James E. DO ~ DATE OF SERVICE: 02/19/2020 CHIEF COMPLAINT: Low back pain, bilateral lower extremity pain and paresthesias. HISTORY OF PRESENT ILLNESS: As you know, the patient is a pleasant 69-year-old female who has returned today in followup visit to undergo next in the series of lumbar epidural injections under fluoroscopic guidance. The patient reports good efficacy with the previous epidural injection reporting symptom relief of greater than 70%. She returns today in followup visit requesting next in the series of epidural injections to build on success of previous intervention. The patient is placing her current pain score at around 10/10. Pain is exacerbated with standing, walking and sitting; improves with rest, relaxation. ALLERGIES: CODEINE. CURRENT MEDICATIONS: See chart. SOCIAL HISTORY: The patient denies tobacco, alcohol, IV or illicit drug use. She is retired, retired about 3 years ago, unaccompanied today. IMAGING: No new imaging available. PQRS: The patient has known arthritic changes of the lumbar spine, cervical spine, bilateral feet. No rheumatoid arthritis. She is placing pain today at 10/10. She is a fall risk and has had a fall in last 3 months. She is utilizing ambulatory devices for balance. She is not on blood thinners, but is treated for hypertension. She is not on chronic opioids, has a low opioid addiction potential based on our assessment tool. Pain impact score of 40/70. Severe interference of daily activities secondary to pain. PHYSICAL EXAMINATION: VITAL SIGNS: Blood pressure 139/85, pulse 67, respiratory rate 20 and unlabored. The patient is 97% on room air. Height 5 feet 5 inches tall, weight 236.6 pounds, BMI calculated 39.4. GENERAL: Well-developed, well-nourished, well-hydrated exogenously obese 69-year-old female appearing stated age, pain is rated today 10/10. HEENT: Normocephalic, atraumatic. Pupils equal, round and reactive. EXTREMITIES: Show no clubbing, no cyanosis, and no edema. [address] [address] PAIN MANAGEMENT CONSULTATION Name: DALTON RYAN Room #: REG [facility]#: [id number] Admission: 02/19/20 Attend Phys: Facundo Agosto DO Discharge: Date of : 46 Report #: [id number] MUSCULOSKELETAL: Lower extremity strength equal and symmetrical 5/5, intact to light touch from L1 through S2 dermatomes. Seated straight leg raising negative. Supine straight leg raising positive. ASSESSMENT: 1. Symptomatic lumbar radiculopathy. 2. Lumbosacral spondylosis with radiculopathy. 3. Lumbar degeneration. 4. Chronic intractable pain. PLAN: 1. The patient returns today in followup visit for the next in the series of epidural injections. The most recent epidural injection gave 70% improvement in overall pain, but unfortunately her symptoms have begun to return. No inciting injury or trauma. She returns today for the next in the series of epidural injections. 2. No medication changes made at today's visit. The patient will continue current medical therapy as previously prescribed. 3. We will see the patient back in followup visit on an as needed basis for possible next in the series of epidural injections. <ELECTRONICALLY SIGNED> By: Facundo Agosot DO 03/03/20 0914 1112 [id number] Facundo Agosto DO /nt
== END | disposition home or self-care (01) ==
LOC: PAIN 06:58
PROVIDERS: ATTEND Anesthesiology Pain Medicine
DX: M54.16 Radiculopathy, lumbar region (principal); G89.29 Other chronic pain; I10 Essential (primary) hypertension; M19.90 Unspecified osteoarthritis, unspecified site; F41.9 Anxiety disorder, unspecified; Z98.890 Other specified postprocedural states; Z79.899 Other long term (current) drug therapy

== ENCOUNTER → 2020-05-13 | Outpatient (CLI) | payer OTHER ==
[~2020-05-13] VITALS: Ht 165.1 cm; Wt 108.8 kg
[2020-05-13 13:31] VITALS: BP 115/60
--- NOTE | 2020-05-13 13:53 | NUR ---
Pain Clinic Assessment: 1. History of Osteoarthritis: BACK NECK BIG TOES History of Rheumatoid Arthritis: Not Applicable 2. Height: 5 ft. 5 in. 165.1 cm. Weight: 239.8 lb. oz. 108.773 kg. Patient's BMI: 39.9 3. Vital Signs: BP: 115/60 Pulse: 71 Resp: 16 Temp: 02 Sat: 98 ECG Mon: 4. Pain Intensity: 7 5. Fall Risk: Dizziness: N Needs help standing or walking: N Fallen in the last 3 months: N Fall risk comments: 6. Patient on Blood Thinner: None 7. History of Hypertension: Y 8. Opioid Therapy greater than 6 weeks: N Opiate Contract Signed: 9. Risk Assessment Tool Provided: LOW RISK 09/13 10. Functional Assessment Tool: 11. Recreational Drug Use: Never Drug Type: Tobacco Use: Never Smoker Tobacco Type: Amount or Packs/day: How Many Years: Alcohol Use: Yes Frequency: Weekly Quant: 1-2 DRINKS
--- NOTE | 2020-05-19 12:53 | HPC ---
[facility] [place] [address] PAIN MANAGEMENT CONSULTATION Name: DALTON RYAN Room #: REG [facility]#: [id number] Admission: 05/13/20 Attend Phys: Facundo Agosto DO Discharge: Date of : 46 Report #: [id number] THIS REPORT FOR: cc: ANGEL ANGELA MD, Steven A. MD Johnson, James E. DO ~ DATE OF SERVICE: 05/13/2020 REFERRING PHYSICIAN: Dr. Angel Angela CHIEF COMPLAINT: Low back pain, bilateral lower extremity pain with paresthesias. HISTORY OF PRESENT ILLNESS: As you know, the patient is a pleasant 69-year-old female who returns today in followup visit requesting to undergo next in the series of lumbar epidural injections under fluoroscopic guidance to address recurrent lumbar radicular symptoms. The patient is placing current pain score at 7/10. The patient states that standing, bending, housework, getting up and down stairs and walking tends to exacerbate symptoms. Sitting, epidural injections and the use of Aleve [id number] medication worked well for pain control. The patient indicates pain begins in low back, radiates down both legs into both feet. This began in 2015 without inciting injury or trauma. She returns today in followup visit requesting to undergo lumbar epidural injection under fluoroscopic guidance. Previous epidural injection according to the patient gave about 50% improvement in overall pain. She returns today in followup visit for the next in the series. ALLERGIES: CODEINE. CURRENT MEDICATIONS: See chart. SOCIAL HISTORY: The patient denies tobacco, alcohol, IV or illicit drug use. She retired about 3 years ago, unaccompanied today. IMAGING: No new imaging available. PQRS: The patient has known arthritic changes of the lumbar spine, cervical spine, bilateral feet. She reports no rheumatoid arthritis. Pain intensity is 7/10. She is not a fall risk nor has she had a fall in last 3 months. She is not on blood thinners, but is treated for hypertension. She is not on chronic opioids and has a low opioid addiction potential. Pain impact 40 of 70, indicating moderate to severe interference of daily activities secondary to pain. PHYSICAL EXAMINATION: [facility] [address] [place] [address] PAIN MANAGEMENT CONSULTATION Name: DALTON RYAN Room #: [facility]#: [id number] Admission: 05/13/20 Attend Phys: Facundo Agosto DO Discharge: Date of : 48 Report #: [id number] VITAL SIGNS: Blood pressure 115/60, pulse 71, respiratory rate 16 and unlabored. The patient is 98% on room air. Height 5 feet 5 inches tall, weight 239.8 pounds, BMI calculated 39.9. GENERAL: Well-developed, well-nourished, well-hydrated 69-year-old female appearing stated age, pain is rated today at 7/10. HEENT: Normocephalic, atraumatic. Pupils equal, round and reactive. EXTREMITIES: Show no clubbing, no cyanosis. No appreciable edema. MUSCULOSKELETAL: Lower extremity strength remains symmetrical again today 5/5, intact to light touch from L1 through S2 dermatomes. Seated straight leg raising negative. Supine straight leg raising negative. Manjit's test is negative. Modified Gaenslen's positive for axial low back pain. ASSESSMENT: 1. Symptomatic lumbar radiculopathy. 2. Lumbosacral spondylosis with radiculopathy. 3. Lumbar degeneration. 4. Chronic intractable pain. PLAN: 1. The patient returns today in followup visit having noted about 50% improvement in overall pain with previous epidural injection. She returns today in followup visit to undergo next in the series in hopes of building on success of previous intervention. The patient has been advised of the risks and the benefits of a lumbar epidural injection. These risks include but are not necessarily limited to bleeding, bruising, infection, worsening pain, no relief of pain, also risk of temporary or permanent muscle weakness, temporary or permanent nerve damage, possible paralysis and . The patient states understood and wished to proceed. 2. No medication changes made at today's visit. The patient will continue current medical therapy as prior prescribed. 3. We will see the patient back in followup visit on an as needed basis for possible next in the series of epidural injections. PROCEDURE NOTE: DESCRIPTION OF PROCEDURE: L5-S1 interlaminar epidural steroid injection under fluoroscopic guidance. This is the first procedure of the second series that the patient is undergoing. After obtaining written consent, the patient was taken back to the fluoroscopy suite, placed in a prone position with pillow under the abdomen to decrease lumbar lordosis. The skin overlying the lumbosacral area was then prepped and draped in aseptic fashion. The L5-S1 vertebral interspace was then identified by AP fluoroscopy. The skin and subcutaneous tissue overlying the target site of injection was anesthetized with 3 mL 1% lidocaine. [facility] [address] [place] [address] PAIN MANAGEMENT CONSULTATION Name: DALTON RYAN Room #: [facility]#: [id number] Admission: 05/13/20 Attend Phys: Facundo Agosto DO Discharge: Date of : 48 Report #: [id number] A 20-gauge 4-1/2 inch Tuohy needle was then advanced under fluoroscopic guidance towards the epidural space using a parasagittal approach. The epidural space was identified using loss of resistance to air technique. After negative aspiration for heme or cerebrospinal fluid, a total of 1 mL of Omnipaque was injected. A lumbar epidurogram was confirmed using both AP and lateral fluoroscopy. After negative aspiration for heme or cerebrospinal fluid, 5 mL of a solution containing 2 mL of 40 mg per mL, 80 mg total triamcinolone along with 3 mL lidocaine 1% was injected in increments. Contrast spread was noted in posterior epidural space. The needle was then retracted approximately half way and needle tract flushed with 1 mL of 1% lidocaine. Needle was then removed. There were no apparent sensory or motor deficits in the lower extremity following the procedure. A sterile bandage was placed over the injection site. The heart rate, pulse, oximetry and blood pressure were continuously monitored after the procedure. There were no apparent complications. The patient tolerated the procedure well and was carefully escorted to the recovery room in stable condition. There were no apparent complications. After meeting discharge criteria, the patient was then discharged home. <ELECTRONICALLY SIGNED> By: Facundo Agosto DO 05/19/20 [id number] [id number] Facundo Agosto DO /nt
== END ==
LOC: PAIN 07:01
PROVIDERS: ATTEND Anesthesiology Pain Medicine
DX: M54.5 Low back pain (principal); M47.27 Other spondylosis with radiculopathy, lumbosacral region; G47.30 Sleep apnea, unspecified; F41.9 Anxiety disorder, unspecified; G89.29 Other chronic pain; Z88.5 Allergy status to narcotic agent; Z79.899 Other long term (current) drug therapy

== ENCOUNTER → 2020-07-22 | Outpatient (CLI) | payer OTHER ==
[~2020-07-22] VITALS: Ht 165.1 cm; Wt 109.6 kg
--- NOTE | ~2020-07-22 | HPC ---
[facility] [place] [place] [address] PAIN MANAGEMENT CONSULTATION Name: DALTON RYAN Room #: REG [facility].#: [id number] Admission: 07/22/20 Attend Phys: Facundo Agosto DO Discharge: Date of : 46 Report #: [id number] THIS REPORT FOR: cc: ANGEL ANGELA MD,Facundo Medrano MD, DO ~ CC: Facundo Angela MD DATE OF SERVICE: 07/22/2020 REFERRING PHYSICIAN: Dr. Angel Angela. CHIEF COMPLAINT: Low back pain, bilateral lower extremity pain, left greater than right. HISTORY OF PRESENT ILLNESS: As you know, the patient is a very pleasant 69-year-old female returning in followup visit with recurrence of lumbar radiculopathy. She is placing pain score 3/10. She reports pain beginning in the low back radiating down the legs, left greater than right. Describes the pain as deep, aching, numbness and tingling, exacerbated with standing, bending, housework, climbing up and down stairs and walking long distances; improves with sleeping, sitting, utilization of [id number]-rzn-[id number] medication and epidural injections. The patient reports with previous epidural injection an improvement of 75%. She returns today in followup visit to undergo next in the series of epidural injections to build on success of previous intervention. The patient denies any new injury or trauma. ALLERGIES: CODEINE. CURRENT MEDICATIONS: Aspirin, diclofenac, alprazolam, glimepiride, Januvia, metformin, omeprazole, lovastatin, bupropion, amlodipine, olmesartan/hydrochlorothiazide, metoprolol. SOCIAL HISTORY: The patient denies tobacco, alcohol, IV or illicit drug use. She is retired about 4 years now. She is unaccompanied at today's visit. IMAGING: No new imaging available. PQRS: The patient has known arthritic changes of the lumbar spine, cervical spine, bilateral ankles and feet. No rheumatoid arthritis. She is placing current pain score 3/10. She is not a fall risk, has not had a fall in last 3 months. She is not on blood thinners, but is treated for hypertension. She is not on chronic opioids, has a low opiate addiction potential based on our [facility] [address] [place] [address] PAIN MANAGEMENT CONSULTATION Name: DALTON RYAN Room #: REG [facility]#: [id number] Admission: 07/22/20 Attend Phys: Facundo Agosto DO Discharge: Date of : 46 Report #: [id number] assessment tool. Pain impact is 40/70, moderate to severe interference of daily activities secondary to pain. PHYSICAL EXAMINATION: VITAL SIGNS: Blood pressure 139/63, pulse 88, respiratory rate 20 and unlabored. The patient is 96% on room air. Height 5 feet 5 inches tall, weight 241.6 pounds, BMI calculated 40.2. GENERAL: Well-developed, well-nourished, well-hydrated, class 3, morbidly obese 69-year-old female appearing stated age, pain is rated today 3/10. HEENT: Normocephalic, atraumatic. Pupils are round. No anisocoria, not dilated or pinpoint. EXTREMITIES: Show no clubbing, no cyanosis, and no edema. MUSCULOSKELETAL: Lower extremity strength is equal and symmetrical. Seated straight leg raising negative. Supine straight leg raising remains negative, but is limited by body habitus to only 60-degree angle. Manjit's test is negative. Modified Gaenslen's is positive for axial low back pain. Intact to light touch from L1 through S2 dermatomes. ASSESSMENT: 1. Symptomatic lumbar radiculopathy. 2. Lumbosacral spondylosis with radiculopathy. 3. Lumbar degeneration. 4. Chronic intractable pain. PLAN: 1. The patient returns today in followup visit requesting to undergo lumbar epidural injection under fluoroscopic guidance. She reports a 75% improvement in overall pain with the epidural injection provided at the last visit. Unfortunately, she has had a slow and progressive return of symptoms, now placing pain score 3/10. She returns today stating no new injury or trauma that has led to symptom reoccurrence requesting next in the series of epidural injections. She has been advised risks and benefits of the procedure, states understood and wished to proceed. 2. No medication changes made at today's visit. The patient will continue current medical therapy as prior prescribed. 3. We plan to see the patient back in followup visit on an as needed basis for possible next in the series of lumbar epidural injections. We wish her well with the procedure and we will see her back on an as needed basis. PROCEDURE NOTE DESCRIPTION OF PROCEDURE: L5-S1 intralaminar epidural steroid injection under fluoroscopic guidance. After obtaining written consent, the patient was taken back to fluoroscopy suite, placed in prone position with pillow under abdomen to decrease lumbar [address] [address] PAIN MANAGEMENT CONSULTATION Name: DALTON RYAN [id number] Admission: 07/22/20 Attend Phys: Facundo Agosto DO Discharge: Date of : 46 Report #: [id number] lordosis. Skin overlying lumbosacral area then prepped and draped in aseptic fashion. The L5-S1 vertebral interspace was identified by AP fluoroscopy. Skin and subcutaneous tissue overlying target site of injection anesthetized with 3 mL of 1% lidocaine. A 20-gauge 3-1/2 inch Tuohy needle advanced under fluoroscopic guidance towards the epidural space using a parasagittal approach. Epidural space identified using loss of resistance to air technique. After negative aspiration for heme or cerebrospinal fluid, 1 mL of Omnipaque injected. A lumbar epidurogram was confirmed using both AP and lateral fluoroscopy. After negative aspiration for heme or cerebrospinal fluid, 5 mL of a solution containing 2 mL 40 mg per mL, 80 mg total triamcinolone along with 3 mL of lidocaine 1% injected slowly. Needle retracted detention, flushed with 1 mL of 1% lidocaine and removed. Sterile bandage placed over injection site. No new motor deficits present in the lower extremities following procedure. The patient tolerated procedure well, carefully escorted to recovery room in stable condition. No apparent complications. After meeting our discharge criteria, the patient discharged home. By: 1313 0330 Facundo Agosto DO /nt
[2020-07-22 12:29] VITALS: BP 139/63
--- NOTE | 2020-07-22 12:35 | NUR ---
Pain Clinic Assessment: 1. History of Osteoarthritis: BACK NECK BIG TOES HIPS SACRAL History of Rheumatoid Arthritis: Not Applicable 2. Height: 5 ft. 5 in. 165.1 cm. Weight: 241.6 lb. oz. 109.589 kg. Patient's BMI: 40.2 3. Vital Signs: BP: 139/63 Pulse: 88 Resp: 20 Temp: 02 Sat: 96 ECG Mon: 4. Pain Intensity: 3 5. Fall Risk: Dizziness: N Needs help standing or walking: N Fallen in the last 3 months: N Fall risk comments: 6. Patient on Blood Thinner: None 7. History of Hypertension: Y 8. Opioid Therapy greater than 6 weeks: N Opiate Contract Signed: 9. Risk Assessment Tool Provided: LOW RISK 09/13 10. Functional Assessment Tool: 11. Recreational Drug Use: Never Drug Type: Tobacco Use: Never Smoker Tobacco Type: Amount or Packs/day: How Many Years: Alcohol Use: Yes Frequency: Weekly Quant: LATELY HAS BEEN DRINKING DAILY, BUT USUALLY ONLY SOCIALLY
== END | disposition home or self-care (01) ==
LOC: PAIN 06:53
PROVIDERS: ATTEND Anesthesiology Pain Medicine
DX: M51.16 Intervertebral disc disorders with radiculopathy, lumbar region (principal); M47.27 Other spondylosis with radiculopathy, lumbosacral region; G89.29 Other chronic pain; I10 Essential (primary) hypertension; M19.90 Unspecified osteoarthritis, unspecified site; Z98.890 Other specified postprocedural states; Z79.899 Other long term (current) drug therapy; Z88.6 Allergy status to analgesic agent

== ENCOUNTER → 2020-09-15 | Outpatient (CLI) | payer OTHER ==
[~2020-09-15] VITALS: Ht 165.1 cm; Wt 110.0 kg
[2020-09-15 09:28] VITALS: BP 126/73
--- NOTE | 2020-09-15 09:49 | NUR ---
Pain Clinic Assessment: 1. History of Osteoarthritis: BACK NECK BIG TOES HIPS SACRAL History of Rheumatoid Arthritis: Not Applicable 2. Height: 5 ft. 5 in. 165.1 cm. Weight: 242.6 lb. oz. 110.043 kg. Patient's BMI: 40.4 3. Vital Signs: BP: 126/73 Pulse: 70 Resp: 16 Temp: 02 Sat: 100 ECG Mon: 4. Pain Intensity: 8 5. Fall Risk: Dizziness: N Needs help standing or walking: N Fallen in the last 3 months: N Fall risk comments: 6. Patient on Blood Thinner: None 7. History of Hypertension: Y 8. Opioid Therapy greater than 6 weeks: N Opiate Contract Signed: 9. Risk Assessment Tool Provided: LOW RISK 09/13 10. Functional Assessment Tool: 11. Recreational Drug Use: Never Drug Type: Tobacco Use: Never Smoker Tobacco Type: Amount or Packs/day: How Many Years: Alcohol Use: Yes Frequency: Quant:
--- NOTE | 2020-09-15 14:37 | HPC ---
[address] [address] PAIN MANAGEMENT CONSULTATION Name: DALTON RYAN Room #: REG [facility].#: [id number] Admission: 09/15/20 Attend Phys: Facundo Agosto DO Discharge: Date of : 48 Report #: [id number] THIS REPORT FOR: cc: Angel Rai MD, Steven A. MD Johnson, James E. DO ~ DATE OF SERVICE: 09/15/2020 CHIEF COMPLAINT: Low back pain, bilateral lower extremity pain. HISTORY OF PRESENT ILLNESS: As you know, the patient is a very pleasant 70-year-old female who has returned today in followup visit requesting to undergo next in the series of lumbar epidural injections to address chronic lumbar radiculopathy. The patient states that she was doing very well with previous epidural injection noticing pain improvement of greater than 75% improvement overall until just recently where she had a slow and progressive return of symptoms. She denies injury or trauma. She states that last evening, she had a significant amount of difficulty getting herself out of a tub due to back pain and lower extremity weakness. She has returned today in followup visit requesting to undergo a lumbar epidural injection under fluoroscopic guidance to address recurrent lumbar radicular pain. Again, the patient denies any new injury, trauma or any changes in medical history since our last visit. ALLERGIES: CODEINE. CURRENT MEDICATIONS: Aspirin, diclofenac, alprazolam, glimepiride, Januvia, metformin, metoprolol, olmesartan/hydrochlorothiazide, amlodipine, bupropion, rosuvastatin, omeprazole. SOCIAL HISTORY: The patient denies tobacco, alcohol, IV or illicit drug use. She has been retired about 4-1/2 years, unaccompanied at today's visit. IMAGING: No new imaging available. PQRS: The patient has arthritic changes of the lumbar spine, cervical spine, bilateral hips, bilateral ankles and feet. No rheumatoid arthritis. She is placing current pain score at 8/10. She is not a fall risk, has not had a fall in last 3 months. She is not on blood thinners, but is treated for hypertension. She is not on any chronic opioids, has a low opiate addiction potential. Pain impact reported today 40/70, moderate interference of daily activities secondary to pain. PHYSICAL EXAMINATION: VITAL SIGNS: Blood pressure 126/73, pulse 70, respiratory rate 16 and unlabored. The patient is 100% on room air. Height 5 feet 5 inches tall, weight 242.6 pounds, BMI calculated 40.4. [address] [address] PAIN MANAGEMENT CONSULTATION Name: DALTON RYAN Room #: REG [facility].#: [id number] Admission: 09/15/20 Attend Phys: Facundo Agosto DO Discharge: Date of : 48 Report #: [id number] GENERAL: Well-developed, well-nourished, well-hydrated, class III, severely morbidly obese 70-year-old female appearing stated age. She is placing current pain score at 8/10. HEENT: Normocephalic, atraumatic. Pupils equal, round and reactive. Speech appears fluent. The patient is wearing a mask in compliance with COVID-19 regulations. EXTREMITIES: Show no clubbing, no cyanosis. No appreciable edema. MUSCULOSKELETAL: The patient's gait today is mildly antalgic. Appears to be favoring the left lower extremity. Seated straight leg raising is negative. Supine straight leg raising remains positive. Manjit's test is negative. Modified Gaenslen's positive for some axial low back pain. ASSESSMENT: 1. Symptomatic lumbar radiculopathy. 2. Lumbosacral spondylosis with radiculopathy. 3. Lumbar degeneration. 4. Chronic intractable pain. PLAN: 1. The patient returns today in followup visit indicating a 75% improvement in overall pain with the epidural injection provided at our last visit. Unfortunately, the patient's symptoms have reoccurred. There has been no new injury or trauma. She made today's appointment to undergo next in the series of epidural injections. She does report that last evening, she had difficulty getting herself out of the bathtub. We discussed with the patient today that she may have to adjust her home life and even possibly look at making adjustments in her bathing process. The fact that she nearly got herself stuck in the tub is concerning. She needs to discuss this with family members and possibly put in a new type of area in the bathroom where she can wash in a more safe fashion. We at least recommend that when she is in the bathroom to carry her cell phone with her so or if she does become unable to remove herself from the bathtub, she can contact family directly. 2. The patient has been advised risks and benefits of a lumbar epidural injection. These risks include but are not necessarily limited to bleeding, bruising, infection, worsening pain, no relief of pain, also risk of temporary or permanent muscle weakness, temporary or permanent nerve damage, possible paralysis and . The patient states understood and wished to proceed. 3. No medication changes made at today's visit. The patient will continue current medical therapy as prior prescribed. 4. We plan to see the patient back in followup visit on an as needed basis. We are hopeful the patient will see once again good and prolonged benefit with this epidural injection. PROCEDURE NOTE DESCRIPTION OF PROCEDURE: L5-S1 intralaminar epidural steroid injection under [facility] [address] [place] [address] PAIN MANAGEMENT CONSULTATION Name: DALTON RYAN Room #: [facility].#: [id number] Admission: 09/15/20 Attend Phys: Facundo Agosto DO Discharge: Date of : 46 Report #: [id number] fluoroscopic guidance. After obtaining written consent, the patient was taken back to fluoroscopy suite, placed in prone position with pillow under abdomen to decrease lumbar lordosis. Skin overlying lumbosacral area then prepped and draped in aseptic fashion. The L5-S1 vertebral interspace was identified by AP fluoroscopy. Skin and subcutaneous tissue overlying target site injection anesthetized with 3 mL of 1% lidocaine. A 20-gauge 3-1/2 inch Tuohy needle advanced under fluoroscopic guidance towards the epidural space using a parasagittal approach. Epidural space identified using loss of resistance to air technique. After negative aspiration for heme or cerebrospinal fluid, 1 mL of Omnipaque injected. Lumbar epidurogram confirmed using both AP and lateral fluoroscopy. After negative aspiration for heme or cerebrospinal fluid, 5 mL of a solution containing 2 mL 40 mg per mL, 80 mg total triamcinolone along with 3 mL of lidocaine 1% injected slowly. Needle retracted longterm, flushed with 1 mL of 1% lidocaine and then removed. Sterile bandage placed over injection site. No new motor deficits present in the lower extremities following procedure. The patient tolerated procedure well, carefully escorted to recovery room in stable condition. No apparent complications. After meeting discharge criteria, the patient discharged home. <ELECTRONICALLY SIGNED> By: Facundo Agosto DO 09/15/20 1437 [id number] Facundo Agosto DO /nt
== END | disposition home or self-care (01) ==
LOC: PAIN 06:48
PROVIDERS: ATTEND Anesthesiology Pain Medicine
DX: M51.16 Intervertebral disc disorders with radiculopathy, lumbar region (principal); M47.27 Other spondylosis with radiculopathy, lumbosacral region; G89.29 Other chronic pain; M19.90 Unspecified osteoarthritis, unspecified site; F41.9 Anxiety disorder, unspecified; Z98.890 Other specified postprocedural states; Z79.899 Other long term (current) drug therapy; Z88.8 Allergy status to other drugs, medicaments and biological substances

== ENCOUNTER → 2020-12-23 | Outpatient (CLI) | payer OTHER ==
[~2020-12-23] VITALS: Ht 165.1 cm; Wt 106.3 kg
[2020-12-23 10:24] VITALS: BP 144/73
--- NOTE | 2020-12-23 10:29 | NUR ---
Pain Clinic Assessment: 1. History of Osteoarthritis: BACK NECK BIG TOES HIPS SACRAL History of Rheumatoid Arthritis: Not Applicable 2. Height: 5 ft. 5 in. 165.1 cm. Weight: 234.4 lb. oz. 106.323 kg. Patient's BMI: 39.0 3. Vital Signs: BP: 144/73 Pulse: 80 Resp: 18 Temp: 02 Sat: 97 ECG Mon: 4. Pain Intensity: 6 5. Fall Risk: Dizziness: N Needs help standing or walking: N Fallen in the last 3 months: N Fall risk comments: 6. Patient on Blood Thinner: None 7. History of Hypertension: Y 8. Opioid Therapy greater than 6 weeks: N Opiate Contract Signed: 9. Risk Assessment Tool Provided: LOW RISK 09/13 10. Functional Assessment Tool: 11. Recreational Drug Use: Never Drug Type: Tobacco Use: Never Smoker Tobacco Type: Amount or Packs/day: How Many Years: Alcohol Use: Yes Frequency: Special Occasions Quant: SOCIALLY
--- NOTE | 2020-12-29 12:24 | HPC ---
[address] [address] PAIN MANAGEMENT CONSULTATION Name: DALTON RYAN Room #: REG [facility].#: [id number] Admission: 12/23/20 Attend Phys: Facundo Agosto DO Discharge: Date of : 46 Report #: [id number] THIS REPORT FOR: cc: Angel Rai MD, Steven A. MD Johnson, James E. DO ~ DATE OF SERVICE: 12/23/2020 REFERRING PHYSICIAN: Angel Rai MD CHIEF COMPLAINT: Low back pain, bilateral lower extremity pain. HISTORY OF PRESENT ILLNESS: As you know, the patient is a very pleasant 70-year-old female returning in followup visit requesting to undergo lumbar epidural injection under fluoroscopic guidance to address recurrent lumbar radicular pain. The patient reports previous lumbar epidural injection gave 80% improvement in overall pain lasting for 2-1/2 months. Unfortunately, her symptoms have begun to return. She has suffered no injury or trauma. She returns today with pain level of 6/10, describing pain as deep aching, sharp, stiffness with intermittent numbness and tingling. She denies new injury or trauma that may have led to symptom recurrence. She returns today for the next in the series of epidural injections. ALLERGIES: CODEINE. CURRENT MEDICATIONS: Aspirin, diclofenac, alprazolam, glimepiride, Januvia, metformin, metoprolol, olmesartan/hydrochlorothiazide, amlodipine, bupropion, rosuvastatin, omeprazole. SOCIAL HISTORY: The patient denies tobacco, alcohol, IV or illicit drug use. She retired about 4-1/2-4-3/4 years ago, unaccompanied today. IMAGING: No new imaging available. PQRS: The patient has known arthritic changes of the lumbar spine, cervical spine, bilateral hips, bilateral ankles and feet. No reported rheumatoid arthritis. Pain intensity is placed today at 6/10. She is not a fall risk, has not had a fall in last 3 months. She is not on blood thinners, but is treated for hypertension. She is not on chronic opioids, has a low opioid addiction potential based on assessment tool. Pain impact is 40/70, moderate interference of daily activities secondary to pain. PHYSICAL EXAMINATION: VITAL SIGNS: Blood pressure 144/73, pulse 80, respiratory rate 18 and unlabored. The patient is 97% on room air. Height 5 feet 5 inches tall, weight 234.4 pounds, BMI calculated 39.0[place] [address] PAIN MANAGEMENT CONSULTATION Name: DALTON RYAN Room #: REG [facility]#: [id number] Admission: 12/23/20 Attend Phys: Facundo Agosto DO Discharge: Date of : 46 Report #: [id number] GENERAL: Well-developed, well-nourished, well-hydrated exogenously obese 70-year-old female appearing stated age. The patient is placing current pain score 6/10. HEENT: Normocephalic, atraumatic. Pupils equal, round, and responsive. The patient is wearing a mask in compliance with COVID-19 regulations. EXTREMITIES: Show no clubbing, no cyanosis, no edema. MUSCULOSKELETAL: Muscle bulk and tone equal and symmetrical in lower extremities. She does have palpatory tenderness over the paraspinal musculature of lower lumbar spine. No spinous process tenderness. Seated straight leg raising is negative. Supine straight leg raising is positive. Manjit's test is negative. Modified Gaenslen's positive for axial low back pain. Lumbar provocation testing is met with slight increase in axial back pain, no radiation of symptoms. ASSESSMENT: 1. Symptomatic lumbar radiculopathy. 2. Lumbosacral spondylosis with radiculopathy. 3. Lumbar degeneration. 4. Chronic intractable pain. PLAN: 1. The patient returns today in followup visit requesting to undergo lumbar epidural injection under fluoroscopic guidance. She is very pleased with response to the previous epidural injection for which she received a reported 80% improvement in overall symptoms lasting for 2-1/2 months. She wishes to repeat this injection today. She has been advised risks and benefits of the procedure, states understood and wished to proceed. 2. No medication changes made at today's visit. The patient will continue current medical therapy as prior prescribed. 3. We will see the patient back in followup visit on an as needed basis for the next in the series of epidural injections. We are hopeful the patient will see once again good and prolonged benefit with this repeated epidural injection. PROCEDURE NOTE DESCRIPTION OF PROCEDURE: L5-S1 parasagittal epidural steroid injection under fluoroscopic guidance. After obtaining written consent, the patient was taken back to fluoroscopy suite, placed in prone position with pillow under abdomen to decrease lumbar lordosis. Skin overlying lumbosacral area prepped and draped in aseptic fashion. L5-S1 vertebral interspace identified by AP fluoroscopy. Skin and subcutaneous tissue overlying target site injection anesthetized with 3 mL of 1% lidocaine. A 20-gauge 3-1/2 inch Tuohy needle advanced under fluoroscopic guidance towards [address] [address] PAIN MANAGEMENT CONSULTATION Name: DALTON RYAN Room #: REG [facility]#: [id number] Admission: 12/23/20 Attend Phys: Facundo Agosto DO Discharge: Date of : 46 Report #: [id number] the epidural space using a parasagittal approach. Epidural space identified using loss of resistance to air technique. After negative aspiration for heme or cerebrospinal fluid, 1 mL of Omnipaque injected. Lumbar epidurogram was confirmed using both AP and lateral fluoroscopy. After negative aspiration for heme or cerebrospinal fluid, 5 mL of a solution containing 2 mL, 40 mg per mL, 80 mg total triamcinolone along with 3 mL of lidocaine 1% injected slowly. Needle retracted correction, flushed with 1 mL of 1% lidocaine and then removed. Sterile bandage placed over injection site. There were no new motor deficits present in lower extremity following procedure. The patient tolerated procedure well, carefully escorted to recovery room in stable condition. No apparent complications. After meeting discharge criteria, the patient discharged home. <ELECTRONICALLY SIGNED> By: Facundo Agosto DO 12/29/20 1224 [id number] Facundo Agosto DO /nt
== END | disposition home or self-care (01) ==
LOC: PAIN 08:43
PROVIDERS: ATTEND Anesthesiology Pain Medicine
DX: M51.16 Intervertebral disc disorders with radiculopathy, lumbar region (principal); M47.27 Other spondylosis with radiculopathy, lumbosacral region; G89.29 Other chronic pain; I10 Essential (primary) hypertension; M19.90 Unspecified osteoarthritis, unspecified site; Z98.890 Other specified postprocedural states; Z79.899 Other long term (current) drug therapy; Z88.8 Allergy status to other drugs, medicaments and biological substances

== ENCOUNTER → 2021-02-23 | Outpatient (CLI) | payer OTHER ==
[~2021-02-23] VITALS: Ht 165.1 cm; Wt 106.1 kg
[~2021-02-23] MED LIST changes: +NOXIFOL-D32500 UNIT PO; +PROBIOTIC1 EAC7 PO
--- NOTE | ~2021-02-23 | HPC ---
[address] [address] PAIN MANAGEMENT CONSULTATION Name: DALTON RYAN Room #: REG [facility].#: [id number] Admission: 02/23/21 Attend Phys: Facundo Agosto DO Discharge: Date of : 46 Report #: [id number] THIS REPORT FOR: cc: Angel Rai MD, Steven A. MD Johnson, James E. DO ~ DOC #: [id number] cc: MD Facundo Umaña DO DATE OF SERVICE: 02/23/2021 REFERRING PHYSICIAN: Angel Rai MD CHIEF COMPLAINT: Low back pain, bilateral lower extremity pain with paresthesias. HISTORY OF PRESENT ILLNESS: As you know, the patient is a very pleasant 70-year-old female who returns today in followup visit with pain level of 8/10. She reports previous epidural injection, worked very well for pain control, relieving symptoms of greater than 70%, lasting for 6-8 weeks. Unfortunately, she has had a slow and progressive return of symptoms. She returns today in followup visit, denying new injury or trauma and requesting next in the series of lumbar epidural injections. The patient is reporting today that she is considering surgical options, but wishes to continue with the more conservative treatment as she considers her options for more definitive treatment. She denies new injury/trauma or any changes in medical history since her last visit. ALLERGIES: CODEINE. CURRENT MEDICATIONS: See chart. SOCIAL HISTORY: The patient denies tobacco, alcohol or illicit drug use. She was retired, retired about 4-3/4 years ago, unaccompanied today. IMAGING: No new imaging available. PQRS: The patient has arthritic changes of lumbar spine, cervical spine, bilateral hips, bilateral ankles and knees. No rheumatoid arthritis. She is placing pain intensity at 8/10. She is not a fall risk, has not had a fall in last 3 months. She is not on blood thinners, but has history of hypertension. She is not on opioids, has a low opiate addiction potential based on assessment tool. Pain impact is 40 of 70, moderate to severe, interference of daily activities secondary to pain. PHYSICAL EXAMINATION: VITAL SIGNS: Blood pressure 117/68, pulse is 71, respiratory rate 16 and [facility] [address] [place] [address] PAIN MANAGEMENT CONSULTATION Name: DALTON RYAN Room #: REG [facility] M.#: [id number] Admission: 02/23/21 Attend Phys: Facundo Agosto DO Discharge: Date of : 46 Report #: [id number] unlabored. The patient 98% on room air. Height 5 feet 5 inches tall, 234 pounds, BMI calculated 38.9. GENERAL: Well-developed, well-nourished, well-hydrated 70-year-old female appearing stated age, pain is rated today, 8/10. HEENT: Normocephalic, atraumatic. Pupils equal, round and responsive. She is wearing mask in compliance with COVID-19 regulations. EXTREMITIES: Show no clubbing, no cyanosis, no edema. MUSCULOSKELETAL: Seated straight leg raising negative. Supine straight leg raising is positive mainly on the left. Manjit's test is negative. Modified Gaenslen's positive for axial back pain. Ankle clonus negative. Babinski is negative. Muscle bulk and tone equal and symmetrical in lower extremities. ASSESSMENT: 1. Symptomatic lumbar radiculopathy. 2. Lumbosacral spondylosis with radiculopathy. 3. Lumbar degeneration. 4. Chronic intractable pain. PLAN: 1. The patient returns today in followup visit reporting an improvement in pain of 70%, lasting for 6-8 weeks. Unfortunately, her symptoms have reoccurred. She returns today in followup visit requesting a lumbar epidural injection under fluoroscopic guidance. The patient has been advised risks and benefits of this procedure, states understood and wished to proceed. 2. The patient reports that she is going to discuss with the PCP to have the opportunity to undergo a next in the series of MRIs. She is planning to look toward surgical options and will be required to have this MRI prior to seeing Neurosurgery so they can discuss her case more effectively. She will be following up with her PCP in regards to this issue. I have requested that if the patient does undergo the MRI to provide us a copy of those findings. 3. No medication changes made at today's visit. The patient will continue current medical therapy as prior prescribed. 4. We will see the patient back for a followup visit on an as needed basis for the next in the series of lumbar epidural injections. She will contact our clinic if she does have a new MRI and we will look for those results. PROCEDURE NOTE DESCRIPTION OF PROCEDURE: L5-S1 left parasagittal epidural steroid injection under fluoroscopic guidance. After obtaining written consent, the patient was taken back to fluoroscopy suite, placed in prone position with pillow under abdomen to decrease lumbar lordosis. Skin overlying lumbosacral area prepped and draped in aseptic fashion. The L5-S1 vertebral interspace identified by AP fluoroscopy. Skin and subcutaneous tissue overlying target site injection anesthetized with 3 mL 1% [address] [address] PAIN MANAGEMENT CONSULTATION Name: DALTON RYAN Room #: REG [facility]#: [id number] Admission: 02/23/21 Attend Phys: Facundo Agosto DO Discharge: Date of : 46 Report #: [id number] lidocaine. A 20-gauge 3-1/2 inch Tuohy needle advanced under fluoroscopic guidance towards the epidural space using a left parasagittal approach. Epidural space identified using loss of resistance to air technique. After negative aspiration for heme or cerebrospinal fluid, 1 mL of Omnipaque injected. Lumbar epidurogram confirmed using both AP and lateral fluoroscopy. After negative aspiration for heme or cerebrospinal fluid, 5 mL of solution containing 2 mL 40 mg per mL 80 mg total triamcinolone along with 3 mL of lidocaine, 1% injected slowly. Needle retracted skilled nursing flushed with 1 mL of 1% lidocaine, then removed. Sterile bandage placed over injection site. No new motor deficits present in lower extremity following procedure. The patient tolerated the procedure well, carefully escorted to recovery room in stable condition. No apparent complications. After meeting discharge criteria, the patient discharged home. DO JOSLYN Yadav/KENNETH/DIANNAI By: [id number] Facundo Agosto DO /nt
[2021-02-23 14:08] VITALS: BP 117/68
--- NOTE | 2021-02-23 14:29 | NUR ---
Pain Clinic Assessment: 1. History of Osteoarthritis: BACK NECK BIG TOES HIPS SACRAL History of Rheumatoid Arthritis: Not Applicable 2. Height: 5 ft. 5 in. 165.1 cm. Weight: 234.0 lb. oz. 106.142 kg. Patient's BMI: 38.9 3. Vital Signs: BP: 117/68 Pulse: 71 Resp: 16 Temp: 02 Sat: 98 ECG Mon: 4. Pain Intensity: 8 5. Fall Risk: Dizziness: N Needs help standing or walking: N Fallen in the last 3 months: N Fall risk comments: 6. Patient on Blood Thinner: None 7. History of Hypertension: Y 8. Opioid Therapy greater than 6 weeks: N Opiate Contract Signed: 9. Risk Assessment Tool Provided: LOW RISK 09/13 10. Functional Assessment Tool: 11. Recreational Drug Use: Never Drug Type: Tobacco Use: Never Smoker Tobacco Type: Amount or Packs/day: How Many Years: Alcohol Use: Yes Frequency: Special Occasions Quant: 2
== END | disposition home or self-care (01) ==
LOC: PAIN 10:54
PROVIDERS: ATTEND Anesthesiology Pain Medicine
DX: M51.16 Intervertebral disc disorders with radiculopathy, lumbar region (principal); M47.27 Other spondylosis with radiculopathy, lumbosacral region; G89.29 Other chronic pain; I10 Essential (primary) hypertension; M19.90 Unspecified osteoarthritis, unspecified site; Z98.890 Other specified postprocedural states; Z79.899 Other long term (current) drug therapy; Z88.6 Allergy status to analgesic agent

== ENCOUNTER → 2021-05-25 | Outpatient (CLI) | payer OTHER ==
[~2021-05-25] VITALS: Ht 165.1 cm; Wt 104.4 kg
[2021-05-25 10:01] VITALS: BP 131/73
--- NOTE | 2021-05-25 10:15 | NUR ---
Pain Clinic Assessment: 1. History of Osteoarthritis: BACK NECK BIG TOES HIPS SACRAL History of Rheumatoid Arthritis: Not Applicable 2. Height: 5 ft. 5 in. 165.1 cm. Weight: 230.2 lb. oz. 104.418 kg. Patient's BMI: 38.3 3. Vital Signs: BP: 131/73 Pulse: 71 Resp: 18 Temp: 02 Sat: 100 ECG Mon: 4. Pain Intensity: 8 5. Fall Risk: Dizziness: N Needs help standing or walking: N Fallen in the last 3 months: N Fall risk comments: 6. Patient on Blood Thinner: None 7. History of Hypertension: Y 8. Opioid Therapy greater than 6 weeks: N Opiate Contract Signed: 9. Risk Assessment Tool Provided: LOW RISK 09/13 10. Functional Assessment Tool: 11. Recreational Drug Use: Never Drug Type: Tobacco Use: Never Smoker Tobacco Type: Amount or Packs/day: How Many Years: Alcohol Use: Yes Frequency: Special Occasions Quant: 1
--- NOTE | 2021-06-01 09:20 | HPC ---
[facility] [place] [address] PAIN MANAGEMENT CONSULTATION Name: DALTON RYAN Room #: REG [facility].#: [id number] Admission: 05/25/21 Attend Phys: Facundo Agosto DO Discharge: Date of : 46 Report #: [id number] THIS REPORT FOR: cc: Angel Rai MD,Facundo Medrano MD, DO ~ cc: Angel Rai MD DATE OF SERVICE: 05/25/2021 REFERRING PHYSICIAN: Dr. Angel Rai CHIEF COMPLAINT: Low back pain, bilateral lower extremity pain with paresthesias. HISTORY OF PRESENT ILLNESS: As you know, the patient is a very pleasant 70-year-old female returning in followup visit, reporting a pain score of around 8/10. She is describing pain in the low back radiating down the legs. She indicates that a good portion of her symptoms were resolved with previous epidural injection reporting up to 80% improvement in overall pain. She returns today in followup visit requesting to undergo the next in a series of epidural injections. The patient states the pain begins in low back, radiates down to the buttocks and down to the thighs. She indicates pain is exacerbated with standing, walking, housework, climbing up and down stairs and walking, improves with sitting, Aleve [id number]-[id number] medications and epidural injections. She returns today for the next in the series of epidural injections. ALLERGIES: CODEINE. CURRENT MEDICATIONS: See chart. SOCIAL HISTORY: The patient denies tobacco, alcohol or IV or illicit drug use. She is retired about 5 years ago, unaccompanied today IMAGING: No new imaging available. PQRS: The patient has known arthritic changes of lumbar spine, bilateral shoulders, cervical spine, lumbar spine, bilateral hips, ankles and knees. No rheumatoid arthritis. She is placing pain intensity today at 8/10. She is not a fall risk, does not have fall in last 3 months. She is not on blood thinners, but is treated for hypertension. She is not on chronic opioids, has a low opioid addiction potential based on assessment tool. Pain impact is equal to 40/70, moderate interference of daily activities secondary to pain. PHYSICAL EXAMINATION: VITAL SIGNS: Blood pressure 131/73, pulse 71, respiratory rate 18 and unlabored. The patient 100% on room air. Height 5 feet 5 inches tall, weight [facility] [address] [place] [address] PAIN MANAGEMENT CONSULTATION Name: DALTON RYAN [id number] Admission: 05/25/21 Attend Phys: Facundo Agosto DO Discharge: Date of : 46 Report #: [id number] 230.2 pounds, BMI calculated 38.3. GENERAL: Well-developed, well-nourished, well-hydrated exogenously obese 70-year-old female, appearing stated age, pain is rated today 8/10. HEENT: Normocephalic, atraumatic. Pupils equal, round and responsive. She is wearing a mask in compliance with COVID-19 regulations. EXTREMITIES: Show no clubbing, no cyanosis. No appreciable edema. MUSCULOSKELETAL: Lower extremity strength is symmetrical, but deconditioned 5/5. Seated straight leg raising is negative. Supine straight leg raising positive on the left. Manjit's test negative. Modified Gaenslen's positive for axial low back pain. Lumbar provocation testing is met with increasing axial back symptoms due to facet arthropathy. ASSESSMENT: 1. Symptomatic lumbar radiculopathy. 2. Lumbosacral spondylosis with radiculopathy. 3. Facet arthropathy, lumbar spine. 4. Lumbar degeneration. 5. Chronic intractable pain. PLAN: 1. The patient returns today in followup visit to undergo lumbar epidural injection under fluoroscopic guidance. She reports 80% improvement in overall pain with the injection provided at last visit. Unfortunately, the patient's symptoms have reoccurred. She returns today to undergo an epidural injection. She has been advised the risks and benefits of the procedure, states understood and wished to proceed. 2. The patient and I did discuss ongoing issues, she has with facet arthropathy and axial back pain. We will recommend a possibility of starting the patient on a nonsteroidal anti-inflammatory. She wishes to discuss this with Dr. Rai. We will defer to Dr. Rai with initiation of his medication would be recommended. I believe a consistent nonsteroidal anti-inflammatory will be quite beneficial to assist the patient in her generalized osteoarthritic pain. 3. See the patient back in followup visit on an as needed basis for the next in the series of epidural injections. PROCEDURE NOTE DESCRIPTION OF PROCEDURE: L5-S1 parasagittal epidural steroid injection under fluoroscopic guidance. After obtaining written consent, the patient was taken back to fluoroscopy suite, placed in prone position with pillow under abdomen to decrease lumbar lordosis. Skin overlying lumbosacral area prepped and draped in aseptic fashion. L5-S1 vertebral interspace identified by AP fluoroscopy. Skin and subcutaneous tissue overlying target site injection anesthetized with 3 mL 1% [address] [address] PAIN MANAGEMENT CONSULTATION Name: DALTON RYAN Room #: REG [facility]#: [id number] Admission: 05/25/21 Attend Phys: Facundo Agosto DO Discharge: Date of : 46 Report #: [id number] lidocaine. A 20 gauge 3-1/2 inch Tuohy needle advanced under fluoroscopic guidance towards the epidural space using a parasagittal approach. Epidural space identified using loss of resistance to air technique. After negative aspiration for heme or cerebrospinal fluid, 1 mL of Omnipaque injected. Lumbar epidurogram was confirmed using both AP and lateral fluoroscopy. After negative aspiration for heme or cerebrospinal fluid, 5 mL solution containing 2 mL 40 mg per mL 80 mg total triamcinolone along with 3 mL of lidocaine 1% injected slowly. Needle then retracted custodial, flushed with 1 mL of 1% lidocaine, then removed. Sterile bandage placed over injection site. No new motor deficits present in the lower extremity following procedure. The patient tolerated the procedure well, carefully escorted to recovery room in stable condition. No apparent complications. After meeting discharge criteria, the patient discharged home. <ELECTRONICALLY SIGNED> By: Facundo Agosto DO 06/01/21 0920 1404 [id number] Facundo Agosto DO /nt
== END | disposition home or self-care (01) ==
LOC: PAIN 07:04
PROVIDERS: ATTEND Anesthesiology Pain Medicine
DX: M51.16 Intervertebral disc disorders with radiculopathy, lumbar region (principal); M47.27 Other spondylosis with radiculopathy, lumbosacral region; M47.26 Other spondylosis with radiculopathy, lumbar region; G89.29 Other chronic pain; F41.9 Anxiety disorder, unspecified; M19.90 Unspecified osteoarthritis, unspecified site; Z98.890 Other specified postprocedural states; Z79.899 Other long term (current) drug therapy; Z88.8 Allergy status to other drugs, medicaments and biological substances

== ENCOUNTER → 2021-07-28 | Outpatient (CLI) | payer OTHER ==
[~2021-07-28] VITALS: Ht 165.1 cm; Wt 101.9 kg
--- NOTE | ~2021-07-28 | HPC ---
[facility] [place] [address] PAIN MANAGEMENT CONSULTATION Name: DALTON RYAN Room #: REG [facility] Windy.#: [id number] Admission: 07/28/21 Attend Phys: Facundo Agosto DO Discharge: Date of : 46 Report #: [id number] THIS REPORT FOR: cc: Angel Rai MD,Facundo Medrano MD, DO ~ cc: Angel Rai MD DATE OF SERVICE: 07/28/2021 REFERRING PHYSICIAN: Dr. Angel Rai CHIEF COMPLAINT: Low back pain and bilateral lower extremity pain, right greater than left. HISTORY OF PRESENT ILLNESS: As you know, the patient is a very pleasant 70-year-old female returning in followup visit with recurrence of low back pain and right lower extremity pain, greater than left lower extremity pain. She is placing pain today at 8/10. She underwent a lumbar epidural injection under fluoroscopic guidance to address lumbar radiculopathy, gave 60% improvement in overall pain lasting for nearly 6 weeks. Unfortunately, her symptoms have recurred. There has been no inciting injury or trauma. She describes the pain as more of a sharp stiffness, numbness and tingling. Pain is exacerbated with standing, bending, housework, climbing up and down stairs and walking, improves with sitting, Aleve, therapy, and lumbar epidural injections. She returns today requesting next in a series of lumbar epidural injections. The patient reports no changes in medication management that would preclude the patient from undergoing an epidural injection today. ALLERGIES: CODEINE. CURRENT MEDICATIONS: See chart. SOCIAL HISTORY: The patient denies tobacco, alcohol, IV or illicit drug use. She is retired, retired about 5 years ago, unaccompanied today. IMAGING: No new imaging available. PQRS: The patient has known arthritic changes of lumbar spine, bilateral shoulders, cervical spine, lumbar spine, bilateral hips, ankles and knees. No rheumatoid arthritis noted. Pain intensity today is 8/10. She is not a fall risk, has not had a fall in last 3 months. She is not on blood thinners, but is treated for hypertension. She is on no opioid medications, has a low opioid addiction. Based on our assessment tool, pain impact is 40/70, moderate interference of daily activities secondary to pain. PHYSICAL EXAMINATION: [facility] [address] [place] [address] PAIN MANAGEMENT CONSULTATION Name: DALTON RYAN [id number] Admission: 07/28/21 Attend Phys: Facundo Agosto DO Discharge: Date of : 46 Report #: [id number] VITAL SIGNS: Blood pressure 117/75, pulse 64, respiratory rate 18 and unlabored. The patient is 98% on room air. Height 5 feet 5 inches tall, weight 224.6 pounds, BMI calculated 37.4. GENERAL: Well-developed, well-nourished, well-hydrated 70-year-old female appearing stated age, pain is rated today at 8/10. HEENT: Head is normocephalic, atraumatic. Her pupils are round. Extraocular muscles are intact. She is wearing a face mask in compliance with [facility]-19 regulations and hospital policy. EXTREMITIES: Show no clubbing, no cyanosis, no edema. MUSCULOSKELETAL: Seated straight leg raising is negative. Supine straight leg raising is positive, mainly on the right today, minimally on the left. ANICETO test is negative. Modified Gaenslen's positive for axial low back pain. Ankle clonus negative. Babinski is negative. ASSESSMENT: 1. Symptomatic lumbar radiculopathy. 2. Lumbosacral spondylosis with radiculopathy. 3. Facet arthropathy of lumbar spine. 4. Lumbar degeneration. 5. Chronic intractable pain. PLAN: 1. The patient returns today in followup visit requesting a lumbar epidural injection under fluoroscopic guidance. She has done very well with previous epidural injections. Most recent given 60% improvement in overall pain, lasting for nearly 6 weeks. Unfortunately, her symptoms have reoccurred. There has been no inciting injury or trauma. She returns today requesting next in the series in hopes of building on success of previous intervention. The patient has been advised risks and benefits of the procedure, states understood and wished to proceed. 2. No medication changes made at today's visit. The patient will continue current medical therapy as prior prescribed. 3. We will plan to see the patient back in followup visit on an as needed basis for the next in the series of lumbar epidural injections. We are hopeful once again the patient will see good and prolonged benefit with today's procedure. PROCEDURE NOTE: DESCRIPTION OF PROCEDURE: L5-S1 right paramedian epidural steroid injection under fluoroscopic guidance. After obtaining written consent, the patient was taken back to fluoroscopy suite, placed in prone position with pillow under abdomen to decrease lumbar lordosis. Skin overlying lumbosacral area prepped and draped in aseptic fashion. The L5-S1 vertebral interspace identified by AP fluoroscopy. Skin and subcutaneous tissue overlying target site injection anesthetized with 3 mL 1% [address] [address] PAIN MANAGEMENT CONSULTATION Name: DALTON RYAN Room #: REG SUE Lewis#: [id number] Admission: 07/28/21 Attend Phys: Facundo Agosto DO Discharge: Date of : 46 Report #: [id number] lidocaine. A 20 gauge 3-1/2 inch Tuohy needle advanced under fluoroscopic guidance towards the epidural space using a right paramedian approach. Epidural space identified using loss of resistance to air technique. After negative aspiration for heme or cerebrospinal fluid, 1 mL of Omnipaque injected. Lumbar epidurogram was confirmed using both AP and lateral fluoroscopy. After negative aspiration for heme or cerebrospinal fluid, 5 mL of a solution containing 2 mL 40 mg per mL 80 mg total triamcinolone along with 3 mL of lidocaine 1% injected slowly. Needle retracted group home flushed with 1 mL of 1% lidocaine, then removed. Sterile bandage placed over injection site. No new motor deficits present in lower extremity following procedure. The patient tolerated the procedure well, carefully escorted to recovery room in stable condition. No apparent complications. After meeting discharge criteria, the patient discharged home. By: [id number] Facundo Aogsto DO /nt
[2021-07-28 09:42] VITALS: BP 117/75
--- NOTE | 2021-07-28 09:58 | NUR ---
Pain Clinic Assessment: 1. History of Osteoarthritis: BACK NECK BIG TOES HIPS SACRAL History of Rheumatoid Arthritis: Not Applicable 2. Height: 5 ft. 5 in. 165.1 cm. Weight: 224.6 lb. oz. 101.878 kg. Patient's BMI: 37.4 3. Vital Signs: BP: 117/75 Pulse: 64 Resp: 18 Temp: 02 Sat: 98 ECG Mon: 4. Pain Intensity: 8 5. Fall Risk: Dizziness: N Needs help standing or walking: N Fallen in the last 3 months: N Fall risk comments: 6. Patient on Blood Thinner: None 7. History of Hypertension: Y 8. Opioid Therapy greater than 6 weeks: N Opiate Contract Signed: 9. Risk Assessment Tool Provided: LOW RISK 1 10. Functional Assessment Tool: 11. Recreational Drug Use: Never Drug Type: Tobacco Use: Never Smoker Tobacco Type: Amount or Packs/day: How Many Years: Alcohol Use: Yes Frequency: Quant:
== END | disposition home or self-care (01) ==
LOC: PAIN 09:13
PROVIDERS: ATTEND Anesthesiology Pain Medicine
DX: M51.16 Intervertebral disc disorders with radiculopathy, lumbar region (principal); M47.27 Other spondylosis with radiculopathy, lumbosacral region; M47.26 Other spondylosis with radiculopathy, lumbar region; G89.29 Other chronic pain; I10 Essential (primary) hypertension; M19.90 Unspecified osteoarthritis, unspecified site; Z98.890 Other specified postprocedural states; Z79.899 Other long term (current) drug therapy; Z88.8 Allergy status to other drugs, medicaments and biological substances

== ENCOUNTER → 2021-09-29 | Outpatient (CLI) | payer OTHER ==
[~2021-09-29] VITALS: Ht 165.1 cm; Wt 104.6 kg
--- NOTE | ~2021-09-29 | HPC ---
[facility] [place] [address] PAIN MANAGEMENT CONSULTATION Name: DALTON RYAN Room #: REG [facility].#: [id number] Admission: 09/29/21 Attend Phys: Facundo Agosto DO Discharge: Date of : 46 Report #: [id number] THIS REPORT FOR: cc: Angel Rai MD,Facundo Medrano MD, DO ~ cc: Angel Rai MD DATE OF SERVICE: 09/29/2021 REFERRING PHYSICIAN: Dr. Rai. CHIEF COMPLAINT: Low back pain, bilateral lower extremity pain. HISTORY OF PRESENT ILLNESS: As you know, the patient is a very pleasant 71-year-old female returning in followup visit with recurrence of low back pain, bilateral lower extremity pain, right greater than left. She states the previous epidural injection under fluoroscopic guidance provided at our visit of 07/28/2021 provided improvement in symptoms of greater than 70%. Unfortunately, her symptoms have reoccurred. The patient lives a relatively sedentary lifestyle. She does not do much in the way of activities. No exercise program. She has been slowly gaining weight, which she knows is exacerbating her symptoms. She returns today in followup visit requesting a lumbar epidural injection under fluoroscopic guidance in hopes of improving pain. The patient denies new injury, new trauma or any changes in medication management since our last visit. ALLERGIES: CODEINE. CURRENT MEDICATIONS: See chart. SOCIAL HISTORY: The patient denies tobacco, alcohol or IV or illicit drug use. She is retired, retired about 6 years ago, unaccompanied today. IMAGING: No new imaging available. PQRS: The patient has known arthritic changes of lumbar spine, bilateral shoulders, cervical spine, lumbar spine, bilateral hips, ankles and knees. No rheumatoid arthritis. She is placing pain intensity at 8/10. She is not a fall risk, has not had a fall in last 3 months. She is not on blood thinners, but is treated for hypertension. She is on no opioids, has a low opioid addiction potential based on assessment tool. Pain impact remains a moderate level 40/70. PHYSICAL EXAMINATION: VITAL SIGNS: Blood pressure 120/63, pulse 71, respiratory rate 18 and unlabored. The patient is 97% on room air. Height 5 feet 5 inches tall, weight 230.6 pounds, BMI calculated 38.4. [address] [address] PAIN MANAGEMENT CONSULTATION Name: DALTON RYAN Room #: REG CLI [facility]#: [id number] Admission: 09/29/21 Attend Phys: Facundo Agosto DO Discharge: Date of : 46 Report #: [id number] GENERAL: Well-developed, well-nourished, well-hydrated exogenously obese 71-year-old female appearing stated age, pain is rated today 8/10. HEENT: Normocephalic, atraumatic. Pupils are round. She is wearing a mask in compliance with COVID-19 regulations. EXTREMITIES: Show no clubbing, no cyanosis. No appreciable edema. MUSCULOSKELETAL: Lower extremity strength is symmetrical, 5/5. Seated straight leg raising is negative. Supine straight leg raising is positive on the right. Fabere's test is negative. Modified Gaenslen's positive for axial low back pain. Gait appears mildly antalgic favoring right lower extremity over left. ASSESSMENT: 1. Symptomatic lumbar radiculopathy. 2. Lumbosacral spondylosis with radiculopathy. 3. Facet arthropathy of lumbar spine. 4. Lumbar degeneration. 5. Displacement of lumbar intervertebral disk with radiculopathy. 6. Chronic intractable pain. PLAN: 1. The patient returns today in followup visit to undergo lumbar epidural injection under fluoroscopic guidance. She reports 70% improvement in overall pain with the previous injection, but unfortunately symptoms have reoccurred. There has been no inciting injury or trauma. She returns to undergo the procedure requested today. She has been advised risks and benefits, states understood and wished to proceed. 2. No medication changes made at today's visit. The patient will continue current medical therapy as prior prescribed. 3. Plan to see the patient back in followup visit on an as needed basis for the next in the series of lumbar epidural injections. The patient was advised changes have been made to the Medicare guidelines for epidural injections. She could have 2 injections in a 6-month period and total of 40 years, so she will have to begin to spread these about every 3 months based on the new insurance guidelines for Medicare. PROCEDURE NOTE. DESCRIPTION OF PROCEDURE: L5-S1 interlaminar epidural steroid injection under fluoroscopic guidance. After obtaining written consent, the patient was taken back to fluoroscopy suite, placed in prone position with pillow under abdomen to decrease lumbar lordosis. Skin overlying lumbosacral area prepped and draped in aseptic fashion. Lumbar intervertebral spaces were identified by AP fluoroscopy. Skin and subcutaneous tissue overlying target site injection anesthetized with 3 mL 1% lidocaine. [address] [address] PAIN MANAGEMENT CONSULTATION Name: DALTON RYAN Room #: REG SUE Lewis#: [id number] Admission: 09/29/21 Attend Phys: Facundo Agosto DO Discharge: Date of : 46 Report #: [id number] A 20-gauge 4-1/2 inch Tuohy needle advanced under fluoroscopic guidance towards the epidural space using a parasagittal approach. Epidural space identified using loss of resistance to air technique. After negative aspiration for heme or cerebrospinal fluid, 1 mL of Omnipaque injected. Lumbar epidurogram was confirmed using both AP and lateral fluoroscopy. After negative aspiration for heme or cerebrospinal fluid, 5 mL solution containing 2 mL 40 mg per mL 80 mg total triamcinolone along with 3 mL of lidocaine, 1% injected slowly. Needle retracted chcf, flushed with 1 mL of 1% lidocaine and removed. Sterile bandage placed over injection site. No new motor deficits present in lower extremity following procedure. The patient tolerated the procedure well, carefully escorted to recovery room in stable condition. No apparent complications. After meeting discharge criteria, the patient discharged home. By: [id number] Facundo Agosto DO /nt
[2021-09-29 09:08] VITALS: BP 120/63
--- NOTE | 2021-09-29 09:27 | NUR ---
Pain Clinic Assessment: 1. History of Osteoarthritis: BACK NECK BIG TOES HIPS SACRAL History of Rheumatoid Arthritis: Not Applicable 2. Height: 5 ft. 5 in. 165.1 cm. Weight: 230.6 lb. oz. 104.600 kg. Patient's BMI: 38.4 3. Vital Signs: BP: 120/63 Pulse: 71 Resp: 18 Temp: 02 Sat: 97 ECG Mon: 4. Pain Intensity: 8 5. Fall Risk: Dizziness: N Needs help standing or walking: N Fallen in the last 3 months: N Fall risk comments: 6. Patient on Blood Thinner: None 7. History of Hypertension: Y 8. Opioid Therapy greater than 6 weeks: N Opiate Contract Signed: 9. Risk Assessment Tool Provided: LOW RISK 1 10. Functional Assessment Tool: 11. Recreational Drug Use: Never Drug Type: Tobacco Use: Never Smoker Tobacco Type: Amount or Packs/day: How Many Years: Alcohol Use: Yes Frequency: Quant:
== END | disposition home or self-care (01) ==
LOC: PAIN 06:56
PROVIDERS: ATTEND Anesthesiology Pain Medicine
DX: M51.16 Intervertebral disc disorders with radiculopathy, lumbar region (principal); M47.27 Other spondylosis with radiculopathy, lumbosacral region; M47.26 Other spondylosis with radiculopathy, lumbar region; G89.29 Other chronic pain; I10 Essential (primary) hypertension; M19.90 Unspecified osteoarthritis, unspecified site; F32.9 Major depressive disorder, single episode, unspecified; Z98.890 Other specified postprocedural states; Z79.899 Other long term (current) drug therapy; Z88.6 Allergy status to analgesic agent; Z79.82 Long term (current) use of aspirin